=== PATIENT | female | born 1960 | race Caucasian/White ===

== ENCOUNTER 2023-03-09 10:21 | Outpatient (OUT) | payer OTHER, MEDICARE, SELFPAY ==
--- NOTE | 2023-03-09 | MM_ITS ---
Patient: FIDEL PLASCENCIA Exam Date: 03/09/2023 : 1960 Gender:F Ordering : DR Sid Castro . Admission #: [id number] Family : Order #: [id number] CLICK HERE TO VIEW EXAM RADIOLOGY REPORT PROCEDURE: MM TOMOSYNTHESIS SCREENING BI COMPARISON: MM TOMOSYNTHESIS SCREENING BI, 03/30/2017. INDICATIONS: Nishant Screening Mammogram Calculator Name NCI Breast Cancer Risk Assessment Tool 5 Year Breast Cancer Risk 1.40% Lifetime Breast Cancer Risk 5.80% Personal Breast Cancer No Personal Ovarian Cancer No Treatments None Family Cancers Aunt-paternal with breast cancer at age 60. LOCATION: [facility] BREAST COMPOSITION: Scattered areas fibroglandular density. FINDINGS: DIAGNOSTIC CATEGORY 1--NEGATIVE. NO CHANGE FROM COMPARISON ASSESSMENT. Scattered benign-appearing lymph nodes are present. RIGHT BREAST: No significant suspicious finding. LEFT BREAST: No significant suspicious finding. RECOMMENDATIONS: ROUTINE MAMMOGRAM AND CLINICAL EVALUATION IN 12 MONTHS. PLEASE NOTE: A NORMAL MAMMOGRAM DOES NOT EXCLUDE THE POSSIBILITY OF BREAST CANCER. A CLINICALLY SUSPICIOUS PALPABLE LUMP SHOULD BE BIOPSIED. Dictated by: Rory Abad MD on 03/09/2023 at 15:32 Approved by: Rory Abad MD on 03/09/2023 at 15:36
== END 2023-03-09 10:22 | disposition home or self-care (01) ==
LOC: MAMMO 10:21
PROVIDERS: PCP Family Medicine; Visit Provider Family Medicine
DX: Z12.31 Encounter for screening mammogram for malignant neoplasm of breast (principal); Z80.3 Family history of malignant neoplasm of breast
CPT/HCPCS: 77063; 77067

== ENCOUNTER 2024-02-15 08:16 | Emergency (ER) | payer OTHER, MEDICARE, SELFPAY ==
[2024-02-15 08:29] VITALS: BP 132/84; PULSE 62; TEMP 36.6; O2SAT 98; BMI 21.6
--- OUTSIDE RECORDS SUMMARY | 2024-02-15 08:39 | XMS_ITS | CCD ---
Author Organization [facility] Care Team Providers Care Inside Sales Administrator Name Role Phone KIRSTY, DR ARIES Robison Attending Unavailable KAURERER, DR ARIES Robison Consulting Unavailable PHILIPR, DR ARIES Robison Primary Care Unavailable KAURERER, DR ARIES Robison Admitting Unavailable SOPHIE, CHAPINCITO Attending Unavailable SOPHIE, CHAPINCITO Consulting Unavailable SOPHIE, CHAPINCITO Admitting Unavailable SOPHIE, CHAPINCITO Admitting Unavailable SOPHIE, CHAPINCITO Attending Unavailable SOPHIE, CHAPINCITO Consulting Unavailable SOPHIE, CHAPINCITO Primary Care Unavailable SOPHIE, CHAPINCITO Admitting Unavailable SOPHIE, CHAPINCITO Attending Unavailable SOPHIE, CHAPINCITO Primary Care Unavailable Problems Problem Classification Problem Date Documented Da te Episodic/Chronic Diseases of white blood cells (4 sources) Decreased white blood cell count, unspecified; Translations: [DECREASED WBC COUNT UNSPECIFIED] Onset: 06-02-2021 Chronic Thyroid disorders (1 source) Hypothyroidism, unspecified; Translations: [HYPOTHYROIDISM UNSPECIFIED] Onset: 12-29-2021 Chronic Results Test Name Value Interpretation Reference Range Facil ity CBC AUTO DIFFon 12-25-2021 BASO # 0.0 103/ul Normal 0.0-0.1 [facility] Comment on above: Performed By: #### C BC #### [facility] [address] [place] [address] Dr. Hazel Fernandez Basophils/100 WBC (Bld) 0.9 % Normal 0.2-2.0 [facility] Comment on above: Performed By: #### C BC #### [facility] [address] [address] [address] Hazel Fernandez EO # 0.1 103/ul Normal 0.0-0.7 [facility] Comment on above: Performed By: #### C BC #### [facility] [address] [address] [address] Hazel Fernandez Eosinophils/100 WBC (Bld) 1.8 % Normal 0.9-7.0 [facility] Comment on above: Performed By: #### C BC #### [facility] [address] [place] [address] Dr. Hazel Fernandez Erythrocyte distribution width (RBC) [Ratio] 12.1 % Normal 11.0-15.0 [facility] Comment on above: Performed By: #### C BC #### [facility] [address] [place] [address] Dr. Hazel Fernandez Hematocrit (Bld) [Volume fraction] 38.2 % Normal 36.0-48.0 [facility] Comment on above: Performed By: #### C BC #### [facility] [address] [place] [address] Dr. Hazel Fernandez Hemoglobin (Bld) [Mass/Vol] 12.8 g/dL Normal 12.0-16.0 [facility] Comment on above: Performed By: #### C BC #### [facility] [address] [place] [address] Dr. Hazel Fernandez IG # 0.01 10e3/ul Normal 0.00-0.03 [facility] Comment on above: Performed By: #### C BC #### [facility] [address] [place] [address] Dr. Hazel Fernandez IG % 0.3 % Normal 0.0-0.5 [facility] Comment on above: Performed By: #### C BC #### [facility] [address] [place] [address] Dr. Hazel Fernandez LYMPH # 1.0 103/ul Critically low 1.2-3.8 [facility] Comment on above: Performed By: #### C BC #### [facility] [address] [place] [address] Dr. Hazel Fernandez Lymphocytes/100 WBC (Bld) 28.7 % Normal 20.5-60.0 [facility] Comment on above: Performed By: #### C BC #### [facility] [address] [place] [address] Dr. Hazel Fernandez MANUAL DIFF REQ NO Normal [facility] Comment on above: Performed By: #### C BC #### [facility] [address] [address] [address] Hazel Fernandez MCH (RBC) [Entitic mass] 30.9 pg Normal 26.7-34.0 [facility] Comment on above: Performed By: #### C BC #### [facility] [address] [address] [address] Hazel Fernandez MCHC (RBC) [Mass/Vol] 33.5 g/dL Normal 29.9-35.2 [facility] Comment on above: Performed By: #### C BC #### [facility] [address] [place] [address] Dr. Hazel Fernandez MCV (RBC) [Entitic vol] 92.3 fL Normal 81.0-99.0 [facility] Comment on above: Performed By: #### C BC #### [facility] [address] [place] [address] Dr. Hazel Fernandez MONO # 0.3 103/ul Normal 0.3-0.8 [facility] Comment on above: Performed By: #### C BC #### [facility] [address] [place] [address] Dr. Hazel Fernandez Monocytes/100 WBC (Bld) 7.7 % Normal 1.7-12.0 [facility] Comment on above: Performed By: #### C BC #### [facility] [address] [place] [address] Dr. Hazel Fernandez NEUT # 2.1 103/ul Normal 1.4-6.5 [facility] Comment on above: Performed By: #### C BC #### [facility] [address] [place] [address] Dr. Hazel Fernandez Neutrophils/100 WBC (Bld) 60.6 % Normal 43.0-75.0 [facility] Comment on above: Performed By: #### C BC #### [facility] [address] [place] [address] Dr. Hazel Fernandez Platelet mean volume (Bld) [Entitic vol] 10.9 fL Normal 9.5-13.5 [facility] Comment on above: Performed By: #### C BC #### [facility] [address] [address] [address] Hazel Fernandez PLT 324 103/ul Normal 150-450 [facility] Comment on above: Performed By: #### C BC #### [facility] [address] [address] [address] Hazel Fernandez RBC 4.14 106/ul Critically low 4.20-5.40 [facility] Comment on above: Performed By: #### C BC #### [facility] [address] [address] [address] Hazel Fernandez WBC 3.4 103/ul Critically low 4.0-11.0 [facility] Comment on above: Performed By: #### C BC #### [facility] [address] [place] [address] Dr. Hazel Fernandez FREE T3on 12-25-2021 FREE T3 2.28 pg/mlL Normal 2.18-3.98 [facility] Comment on above: Performed By: #### L IPID, BMP, TSH, LIVER, FT3 #### [facility] [address] [address] [address] Hazel Fernandez FREE T4on 12-25-2021 Free T4 [Mass/Vol] 1.08 ng/dL Normal 0.76-1.46 [facility] Comment on above: Performed By: #### L IPID, CMP #### [facility] [address] [address] [address] Hazel Fernandez LIPID PROFILEon 12-25-2021 CHOL-HDL RATIO NORM SEE BELOW Normal [facility] Comment on above: Result Comment: 3.3 - 4.4 LOW RISK 4.4 - 7.1 AVERAGE RISK 7.1 - 11.0 MODERATE RISK >11.0 HIGH RISK Performed By: #### L IPID, BMP, TSH, LIVER, FT3 #### [facility] [address] [place] [address] Dr. Hazel Fernandez Cholesterol [Mass/Vol] 219 mg/dL Critically high <=200 [facility] Comment on above: Performed By: #### L IPID, BMP, TSH, LIVER, FT3 #### [facility] [address] [address] [address] Hazel Fernandez Cholesterol in HDL [Mass/Vol] 91 mg/dL Critically high 40-60 [facility] Comment on above: Performed By: #### L IPID, BMP, TSH, LIVER, FT3 #### [facility] [address] [address] [address] Hazel Fernandez Cholesterol in LDL [Mass/Vol] 109.4 mg/dL Normal [facility] Comment on above: Performed By: #### L IPID, BMP, TSH, LIVER, FT3 #### [facility] [address] [address] [address] Hazel Fernandez Cholesterol.total/Cho lesterol in HDL [Mass ratio] 2.4 {ratio} Normal [facility] Comment on above: Performed By: #### L IPID, BMP, TSH, LIVER, FT3 #### [facility] [address] [address] [address] Hazel Fernandez HDL NORMAL > or = 60 mg/dl - LOW CARDIOVASCULAR RISK <40 mg/dl - HIGH CARDIOVASCULAR RISK Normal [facility] Comment on above: Performed By: #### L IPID, BMP, TSH, LIVER, FT3 #### [facility] [address] [address] [address] Hazel Fernandez LDL CALC NORMAL SEE BELOW Normal [facility] Comment on above: Result Comment: <100 mg/dl OPTIMAL 100 - 129 mg/dl NEAR OR ABOVE OPTIMAL 130 - 159 mg/dl BORDERLINE HIGH 160 - 189 mg/dl HIGH >190 mg/dl VERY HIGH Performed By: #### L IPID, BMP, TSH, LIVER, FT3 #### [facility] [address] [address] [address] Hazel Fernandez Triglyceride [Mass/Vol] 93 mg/dL Normal <=150 [facility] Comment on above: Performed By: #### L IPID, BMP, TSH, LIVER, FT3 #### [facility] [address] [address] [address] Hazel Fernandez VLDL CALC 18.6 mg/dL Normal [facility] Comment on above: Performed By: #### L IPID, BMP, TSH, LIVER, FT3 #### [facility] [address] [address] [address] Hazel Fernandez LIVER PROFILEon 12-25-2021 Albumin [Mass/Vol] 4.0 g/dL Normal 3.4-5.0 [facility] Comment on above: Performed By: #### L IPID, BMP, TSH, LIVER, FT3 #### [facility] [address] [address] [address] Hazel Fernandez Albumin/Globulin [Mass ratio] 1.2 {ratio} Normal [facility] Comment on above: Performed By: #### L IPID, BMP, TSH, LIVER, FT3 #### [facility] [address] [place] [address] Dr. Hazel Fernandez ALP [Catalytic activity/Vol] 100 U/L Normal 46-116 [facility] Comment on above: Performed By: #### L IPID, BMP, TSH, LIVER, FT3 #### [facility] [address] [address] [address] Hazel Fernandez ALT [Catalytic activity/Vol] 16 U/L Normal 14-59 [facility] Comment on above: Performed By: #### L IPID, BMP, TSH, LIVER, FT3 #### [facility] [address] [address] [address] Hazel Fernandez AST [Catalytic activity/Vol] 16 U/L Normal 15-37 [facility] Comment on above: Performed By: #### L IPID, BMP, TSH, LIVER, FT3 #### [facility] [address] [address] [address] Hazel Fernandez BILI, CONJUGATED 0.1 mg/dL Normal 0.0-0.2 [facility] Comment on above: Performed By: #### L IPID, BMP, TSH, LIVER, FT3 #### [facility] [address] [address] [address] Hazel Fernandez Bilirubin [Mass/Vol] 0.5 mg/dL Normal 0.2-1.0 [facility] Comment on above: Performed By: #### L IPID, BMP, TSH, LIVER, FT3 #### [facility] [address] [place] [address] Dr. Hazel Fernandez Globulin (S) [Mass/Vol] 3.3 g/dL Normal [facility] Comment on above: Performed By: #### L IPID, BMP, TSH, LIVER, FT3 #### [facility] [address] [place] [address] Dr. Hazel Fernandez Protein [Mass/Vol] 7.3 g/dL Normal 6.4-8.2 [facility] Comment on above: Performed By: #### L IPID, BMP, TSH, LIVER, FT3 #### [facility] [address] [place] [address] Dr. Hazel Fernandez PROF CHEM 8 (BAS METB)on Anion gap [Moles/Vol] 10.4 mmol/L Normal [facility] Comment on above: Performed By: #### L IPID, BMP, TSH, LIVER, FT3 #### [facility] [address] [place] [address] Dr. Hazel Fernandez Calcium [Mass/Vol] 9.3 mg/dL Normal 8.5-10.1 [facility] Comment on above: Performed By: #### L IPID, BMP, TSH, LIVER, FT3 #### [facility] [address] [place] [address] Dr. Hazel Fernandez Chloride [Moles/Vol] 101 mmol/L Normal 98-107 [facility] Comment on above: Performed By: #### L IPID, BMP, TSH, LIVER, FT3 #### [facility] [address] [place] [address] Dr. Hazel Fernandez CO2 [Moles/Vol] 30.3 mmol/L Normal 21.0-32.0 [facility] Comment on above: Performed By: #### L IPID, BMP, TSH, LIVER, FT3 #### [facility] [address] [place] [address] Dr. Hazel Fernandez Creatinine [Mass/Vol] 0.75 mg/dL Normal 0.55-1.02 [facility] Comment on above: Performed By: #### L IPID, BMP, TSH, LIVER, FT3 #### [facility] [address] [address] [address] Hazel Fernandez EGFR-AF MEXICAN >60 Normal >=60 [facility] Comment on above: Performed By: #### L IPID, BMP, TSH, LIVER, FT3 #### [facility] [address] [address] [address] Hazel Fernandez EGFR-NON AF MEXICAN >60 Normal >=60 [facility] Comment on above: Performed By: #### L IPID, BMP, TSH, LIVER, FT3 #### [facility] [address] [address] [address] Hazel Fernandez Glucose [Mass/Vol] 92 mg/dL Normal 74-106 [facility] Comment on above: Performed By: #### L IPID, BMP, TSH, LIVER, FT3 #### [facility] [address] [address] [address] Hazel Fernandez Potassium [Moles/Vol] 3.7 mmol/L Normal 3.5-5.1 [facility] Comment on above: Performed By: #### L IPID, BMP, TSH, LIVER, FT3 #### [facility] [address] [address] [address] Hazel Fernandez Sodium [Moles/Vol] 138 mmol/L Normal 136-145 [facility] Comment on above: Performed By: #### L IPID, BMP, TSH, LIVER, FT3 #### [facility] [address] [address] [address] Hazel Fernandez Urea nitrogen [Mass/Vol] 16.0 mg/dL Normal 7.0-18.0 [facility] Comment on above: Performed By: #### L IPID, BMP, TSH, LIVER, FT3 #### [facility] [address] [address] [address] Hazel Fernandez Urea nitrogen/Creatinine [Mass ratio] 21.3 mg/mg Normal [facility] Comment on above: Performed By: #### L IPID, BMP, TSH, LIVER, FT3 #### [facility] [address] [place] [address] Dr. Hazel Fernandez TSHon 12-25-2021 TSH 3.662 uIU/mL Normal 0.358-3.740 [facility] Comment on above: Performed By: #### L IPID, BMP, TSH, LIVER, FT3 #### [facility] [address] [place] [address] Dr. Hazel Fernandez CBC AUTO DIFFon 06-02-2021 BASO # 0.0 103/ul Normal 0.0-0.1 [facility] Comment on above: Performed By: #### L IPID, CMP #### [facility] [address] [place] [address] Dr. Hazel Fernandez Basophils/100 WBC (Bld) 0.8 % Normal 0.2-2.0 [facility] Comment on above: Performed By: #### L IPID, CMP #### [facility] [address] [place] [address] Dr. Hazel Fernandez EO # 0.1 103/ul Normal 0.0-0.7 [facility] Comment on above: Performed By: #### L IPID, CMP #### [facility] [address] [place] [address] Dr. Hazel Fernandez Eosinophils/100 WBC (Bld) 1.6 % Normal 0.9-7.0 [facility] Comment on above: Performed By: #### L IPID, CMP #### [facility] [address] [place] [address] Dr. Hazel Fernandez Erythrocyte distribution width (RBC) [Ratio] 11.9 % Normal 11.0-15.0 [facility] Comment on above: Performed By: #### L IPID, CMP #### [facility] [address] [place] [address] Dr. Hazel Fernandez Hematocrit (Bld) [Volume fraction] 39.6 % Normal 36.0-48.0 [facility] Comment on above: Performed By: #### L IPID, CMP #### [facility] [address] [address] [address] Hazel Fernandez Hemoglobin (Bld) [Mass/Vol] 13.1 g/dL Normal 12.0-16.0 [facility] Comment on above: Performed By: #### L IPID, CMP #### [facility] [address] [address] [address] Hazel Fernandez IG # 0.01 10e3/ul Normal 0.00-0.03 [facility] Comment on above: Performed By: #### L IPID, CMP #### [facility] [address] [place] [address] Dr. Hazel Fernandez IG % 0.3 % Normal 0.0-0.5 [facility] Comment on above: Performed By: #### L IPID, CMP #### [facility] [address] [place] [address] Dr. Hazle Fernandez LYMPH # 0.8 103/ul Critically low 1.2-3.8 [facility] Comment on above: Performed By: #### L IPID, CMP #### [facility] [address] [place] [address] Dr. Hazel Fernandez Lymphocytes/100 WBC (Bld) 21.7 % Normal 20.5-60.0 [facility] Comment on above: Performed By: #### L IPID, CMP #### [facility] [address] [place] [address] Dr. Hazel Fernandez MANUAL DIFF REQ NO Normal [facility] Comment on above: Performed By: #### L IPID, CMP #### [facility] [address] [address] [address] Hazel Fernandez MCH (RBC) [Entitic mass] 30.3 pg Normal 26.7-34.0 [facility] Comment on above: Performed By: #### L IPID, CMP #### [facility] [address] [place] [address] Dr. Hazel Fernandez MCHC (RBC) [Mass/Vol] 33.1 g/dL Normal 29.9-35.2 [facility] Comment on above: Performed By: #### L IPID, CMP #### [facility] [address] [place] [address] Dr. Hazel Fernandez MCV (RBC) [Entitic vol] 91.7 fL Normal 81.0-99.0 [facility] Comment on above: Performed By: #### L IPID, CMP #### [facility] [address] [place] [address] Dr. Hazel Fernandez MONO # 0.3 103/ul Normal 0.3-0.8 [facility] Comment on above: Performed By: #### L IPID, CMP #### [facility] [address] [place] [address] Dr. Hazel Fernandez Monocytes/100 WBC (Bld) 6.6 % Normal 1.7-12.0 [facility] Comment on above: Performed By: #### L IPID, CMP #### [facility] [address] [place] [address] Dr. Hazel Fernandez NEUT # 2.6 103/ul Normal 1.4-6.5 [facility] Comment on above: Performed By: #### L IPID, CMP #### [facility] [address] [place] [address] Dr. Hazel Fernandez Neutrophils/100 WBC (Bld) 69.0 % Normal 43.0-75.0 [facility] Comment on above: Performed By: #### L IPID, CMP #### [facility] [address] [place] [address] Dr. Hazel Fernandez Platelet mean volume (Bld) [Entitic vol] 10.5 fL Normal 9.5-13.5 [facility] Comment on above: Performed By: #### L IPID, CMP #### [facility] [address] [place] [address] Dr. Hazel Fernandez PLT 268 103/ul Normal 150-450 [facility] Comment on above: Performed By: #### L IPID, CMP #### [facility] [address] [place] [address] Dr. Hazel Fernandez RBC 4.32 106/ul Normal 4.20-5.40 [facility] Comment on above: Performed By: #### L IPID, CMP #### [facility] [address] [place] [address] Dr. Hazel Fernandez WBC 3.8 103/ul Critically low 4.0-11.0 [facility] Comment on above: Performed By: #### L IPID, CMP #### [facility] [address] [place] [address] Dr. Hazel Fernandez INSULINon 05-01-2021 Insulin 4.9 uIU/mL Normal 2.6-24.9 [facility] Comment on above: Performed By: #### I NSULIN #### [facility] [address] [place] [address] Dr. Hazel Fernandez CBC AUTO DIFFon 04-30-2021 BASO # 0.1 103/ul Normal 0.0-0.1 [facility] Comment on above: Performed By: #### L IPID, CMP #### [facility] [address] [place] [address] Dr. Hazel Fernandez Basophils/100 WBC (Bld) 1.4 % Normal 0.2-2.0 [facility] Comment on above: Performed By: #### L IPID, CMP #### [facility] [address] [place] [address] Dr. Hazel Fernandez EO # 0.0 103/ul Normal 0.0-0.7 [facility] Comment on above: Performed By: #### L IPID, CMP #### [facility] [address] [place] [address] Dr. Hazel eFrnandez Eosinophils/100 WBC (Bld) 1.1 % Normal 0.9-7.0 [facility] Comment on above: Performed By: #### L IPID, CMP #### [facility] [address] [place] [address] Dr. Hazel Fernandez Erythrocyte distribution width (RBC) [Ratio] 11.9 % Normal 11.0-15.0 [facility] Comment on above: Performed By: #### L IPID, CMP #### [facility] [address] [address] [address] Hazel Fernandez Hematocrit (Bld) [Volume fraction] 38.5 % Normal 36.0-48.0 [facility] Comment on above: Performed By: #### L IPID, CMP #### [facility] [address] [address] [address] Hazel Fernandez Hemoglobin (Bld) [Mass/Vol] 12.5 g/dL Normal 12.0-16.0 [facility] Comment on above: Performed By: #### L IPID, CMP #### [facility] [address] [place] [address] Dr. Hazel Fernandez IG # 0.01 10e3/ul Normal 0.00-0.03 [facility] Comment on above: Performed By: #### L IPID, CMP #### [facility] [address] [place] [address] Dr. Hazel Fernandez IG % 0.3 % Normal 0.0-0.5 [facility] Comment on above: Performed By: #### L IPID, CMP #### [facility] [address] [address] [address] Hazel Fernandez LYMPH # 0.8 103/ul Critically low 1.2-3.8 [facility] Comment on above: Performed By: #### L IPID, CMP #### [facility] [address] [address] [address] Hazel Fernandez Lymphocytes/100 WBC (Bld) 24.0 % Normal 20.5-60.0 [facility] Comment on above: Performed By: #### L IPID, CMP #### [facility] [address] [place] [address] Dr. Hazel Fernandez MANUAL DIFF REQ NO Normal [facility] Comment on above: Performed By: #### L IPID, CMP #### [facility] [address] [place] [address] Dr. Hazel Fernandez MCH (RBC) [Entitic mass] 30.5 pg Normal 26.7-34.0 [facility] Comment on above: Performed By: #### L IPID, CMP #### [facility] [address] [place] [address] Dr. Hazel Fernandez MCHC (RBC) [Mass/Vol] 32.5 g/dL Normal 29.9-35.2 [facility] Comment on above: Performed By: #### L IPID, CMP #### [facility] [address] [place] [address] Dr. Hazel Fernandez MCV (RBC) [Entitic vol] 93.9 fL Normal 81.0-99.0 [facility] Comment on above: Performed By: #### L IPID, CMP #### [facility] [address] [place] [address] Dr. Hazel Fernandez MONO # 0.3 103/ul Normal 0.3-0.8 [facility] Comment on above: Performed By: #### L IPID, CMP #### [facility] [address] [place] [address] Dr. Hazel Fernandez Monocytes/100 WBC (Bld) 7.4 % Normal 1.7-12.0 [facility] Comment on above: Performed By: #### L IPID, CMP #### [facility] [address] [place] [address] Dr. Hazel Fernandez NEUT # 2.3 103/ul Normal 1.4-6.5 [facility] Comment on above: Performed By: #### L IPID, CMP #### [facility] [address] [place] [address] Dr. Hazel Fernandez Neutrophils/100 WBC (Bld) 65.8 % Normal 43.0-75.0 [facility] Comment on above: Performed By: #### L IPID, CMP #### [facility] [address] [place] [address] Dr. Hazel Fernandez Platelet mean volume (Bld) [Entitic vol] 10.3 fL Normal 9.5-13.5 [facility] Comment on above: Performed By: #### L IPID, CMP #### [facility] [address] [place] [address] Dr. Hazel Fernandez PLT 344 103/ul Normal 150-450 [facility] Comment on above: Performed By: #### L IPID, CMP #### [facility] [address] [address] [address] Hazel Fernandez RBC 4.10 106/ul Critically low 4.20-5.40 [facility] Comment on above: Performed By: #### L IPID, CMP #### [facility] [address] [address] [address] Hazel Fernandez WBC 3.5 103/ul Critically low 4.0-11.0 [facility] Comment on above: Performed By: #### L IPID, CMP #### [facility] [address] [place] [address] Dr. Hazel Feranndez GLYCOHEMOGLOBIN A1Con 2020 ADA RECOMMENDATION ADA THERAPEUTIC TARGET 6.0 - 7.0 ACTION SUGGESTED > 7.0 Normal [facility] Comment on above: Performed By: #### A 1C #### [facility] [address] [place] [address] Dr. Hazel Fernandez Glucose [Mass/Vol] 114 mg/dL Normal [facility] Comment on above: Performed By: #### A 1C #### [facility] [address] [place] [address] Dr. Hazel Fernandez HbA1c (Bld) [Mass fraction] 5.6 % Normal <=6.0 [facility] Comment on above: Performed By: #### A 1C #### [facility] [address] [place] [address] Dr. Hazel Fernandez IRONon 04-30-2021 Iron [Mass/Vol] 69.0 ug/dL Normal 37.0-170.0 [facility] Comment on above: Performed By: #### L IPID, CMP #### [facility] [address] [place] [address] Dr. Hazel Fernandez LIPID PROFILEon 04-30-2021 CHOL-HDL RATIO NORM SEE BELOW Normal [facility] Comment on above: Result Comment: 3.3 - 4.4 LOW RISK 4.4 - 7.1 AVERAGE RISK 7.1 - 11.0 MODERATE RISK >11.0 HIGH RISK Performed By: #### L IPID, CMP #### [facility] [address] [address] [address] Hazel Fernandez Cholesterol [Mass/Vol] 214 mg/dL Critically high <=200 [facility] Comment on above: Performed By: #### L IPID, CMP #### [facility] [address] [address] [address] Hazel Fernandez Cholesterol in HDL [Mass/Vol] 90 mg/dL Normal [facility] Comment on above: Performed By: #### L IPID, CMP #### [facility] [address] [address] [address] Hazel Fernandez Cholesterol in LDL [Mass/Vol] 106.4 mg/dL Normal [facility] Comment on above: Performed By: #### L IPID, CMP #### [facility] [address] [place] [address] Dr. Hazel Fernandez Cholesterol.total/Cho lesterol in HDL [Mass ratio] 2.4 {ratio} Normal [facility] Comment on above: Performed By: #### L IPID, CMP #### [facility] [address] [address] [address] Hazel Fernandez HDL NORMAL > or = 60 mg/dl - LOW CARDIOVASCULAR RISK <40 mg/dl - HIGH CARDIOVASCULAR RISK Normal [facility] Comment on above: Performed By: #### L IPID, CMP #### [facility] [address] [address] [address] Hazel Fernandez LDL CALC NORMAL SEE BELOW Normal [facility] Comment on above: Result Comment: <100 mg/dl OPTIMAL 100 - 129 mg/dl NEAR OR ABOVE OPTIMAL 130 - 159 mg/dl BORDERLINE HIGH 160 - 189 mg/dl HIGH >190 mg/dl VERY HIGH Performed By: #### L IPID, CMP #### [facility] [address] [address] [address] Hazel Fernandez Triglyceride [Mass/Vol] 88 mg/dL Normal <=150 [facility] Comment on above: Performed By: #### L IPID, CMP #### [facility] [address] [place] [address] Dr. Hazel Fernandez VLDL CALC 17.6 mg/dL Normal [facility] Comment on above: Performed By: #### L IPID, CMP #### [facility] [address] [place] [address] Dr. Hazel Fernandez PROF 14(COMP METB)on 021 Albumin [Mass/Vol] 3.8 g/dL Normal 3.5-5.0 [facility] Comment on above: Performed By: #### L IPID, CMP #### [facility] [address] [address] [address] Hazel Fernandez Albumin/Globulin [Mass ratio] 1.1 {ratio} Normal [facility] Comment on above: Performed By: #### L IPID, CMP #### [facility] [address] [place] [address] Dr. Hazel Fernandez ALP [Catalytic activity/Vol] 109 U/L Normal 38-126 [facility] Comment on above: Performed By: #### L IPID, CMP #### [facility] [address] [place] [address] Dr. Hazel Fernandez ALT [Catalytic activity/Vol] 20 U/L Normal 9-52 [facility] Comment on above: Performed By: #### L IPID, CMP #### [facility] [address] [place] [address] Dr. Hazel Fernandez Anion gap [Moles/Vol] 9.2 mmol/L Normal [facility] Comment on above: Performed By: #### L IPID, CMP #### [facility] [address] [place] [address] Dr. Hazel Fernandez AST [Catalytic activity/Vol] 14 U/L Normal 14-36 [facility] Comment on above: Performed By: #### L IPID, CMP #### [facility] [address] [place] [address] Dr. Hazel Fernandez Bilirubin [Mass/Vol] 0.5 mg/dL Normal 0.2-1.3 [facility] Comment on above: Performed By: #### L IPID, CMP #### [facility] [address] [address] [address] Hazel Fernandez Calcium [Mass/Vol] 9.3 mg/dL Normal 8.4-10.2 [facility] Comment on above: Performed By: #### L IPID, CMP #### [facility] [address] [address] [address] Hazel Fernandez Chloride [Moles/Vol] 103 mmol/L Normal 98-107 [facility] Comment on above: Performed By: #### L IPID, CMP #### [facility] [address] [address] [address] Hazel Fernandez CO2 [Moles/Vol] 31.8 mmol/L Critically high 22.0-30.0 [facility] Comment on above: Performed By: #### L IPID, CMP #### [facility] [address] [place] [address] Dr. Hazel Fernandez Creatinine [Mass/Vol] 0.88 mg/dL Normal 0.52-1.04 [facility] Comment on above: Performed By: #### L IPID, CMP #### [facility] [address] [place] [address] Dr. Hazel Fernandez EGFR-AF MEXICAN >60 Normal >=60 [facility] Comment on above: Performed By: #### L IPID, CMP #### [facility] [address] [place] [address] Dr. Hazel Fernandez EGFR-NON AF MEXICAN >60 Normal >=60 [facility] Comment on above: Performed By: #### L IPID, CMP #### [facility] [address] [address] [address] Hazel Fernandez Globulin (S) [Mass/Vol] 3.4 g/dL Normal [facility] Comment on above: Performed By: #### L IPID, CMP #### [facility] [address] [address] [address] Hazel Fernandez Glucose [Mass/Vol] 92 mg/dL Normal 74-106 [facility] Comment on above: Performed By: #### L IPID, CMP #### [facility] [address] [address] [address] Hazel Fernandez Potassium [Moles/Vol] 4.0 mmol/L Normal 3.4-5.0 [facility] Comment on above: Performed By: #### L IPID, CMP #### [facility] [address] [address] [address] Hazel Fernandez Protein [Mass/Vol] 7.2 g/dL Normal 6.1-8.2 [facility] Comment on above: Performed By: #### L IPID, CMP #### [facility] [address] [address] [address] Hazel Fernandez Sodium [Moles/Vol] 140 mmol/L Normal 137-145 [facility] Comment on above: Performed By: #### L IPID, CMP #### [facility] [address] [place] [address] Dr. Hazel Fernandez Urea nitrogen [Mass/Vol] 15.0 mg/dL Normal 7.0-17.0 [facility] Comment on above: Performed By: #### L IPID, CMP #### [facility] [address] [address] [address] Hazel Fernandez Urea nitrogen/Creatinine [Mass ratio] 17.0 mg/mg Normal [facility] Comment on above: Performed By: #### L IPID, CMP #### [facility] [address] [address] [address] Hazel Fernandez Encounters Encounter Date Encounter Type Care Provider Facility Start: 12-29-2021 Encounter for genera l adult medical examination without abnormal findings DR ARIES LOFTON [facility] Start: 12-25-2021 End: 12-26-[address] ARIES LOFTON Facility:[facility] Start: 12-25-2021 End: 12-26-2021 Encounter for general adult medical examination without abnormal findings DR ARIES LOFTON Facility:[facility] Start: 10-29-2021 ambulatory CHAPINCITO BARRIOS Facility: [facility] Start: 06-02-2021 End: 06-03-2021 ambulatory CHAPINCITO BARRIOS Facility:[facility] Start: 04-30-2021 End: 05-01-2021 ambulatory CHAPINCITO BARRIOS Facility:[facility] Payers Date Payer Category Payer Medicare [id number] 1961 Self-pay 1961 Unknown [id number] 1960 Unknown [id number] [id number] 1960 Unknown [id number] [id number] 1960 Unknown [id number] [id number] [id number] 1960 Unknown [id number] 2.16.84 [id number] Summary Purpose Family History No Family History Records Found Advance Directives No Advanced Directives Records Found Additional Source Comments INFORMATION SOURCE (unrecogn ized section and content) DATE CREATED AUTHOR 12/31/[address] [facility] FOR RECORDS PERTAINING TO PATIENTS WHO ARE OR HAVE BEEN ENROLLED IN A CHEMICAL DEPENDENCY/SUBSTANCEABUSE PROGRAM, SOME INFORMATION MAY BE OMITTED. This clinical summary was aggregated from multiple sources. Caution should be exercised in using it in the provision of clinical care. This summary normalizes information from multiple sources, and as a consequence, information in this document may materially change the coding, format and clinical context of patient data. In addition, data may be omitted in some cases. CLINICAL DECISIONS SHOULD BE BASED ON THE PRIMARY CLINICAL RECORDS. [facility] [facility]. provides no warranty or guarantee of the accuracy or completeness of information in this document.
--- NOTE | 2024-02-15 09:02 | CT_ITS ---
[address] [address] Patient Name: FIDEL PLASCENCIA MRN: [id number] date: 1960 Sex: F Assigned Patient Location: ER Current Patient Location: Accession/Order Number: [id number] Exam Date: 02/15/2024 09:38 Report Date: 02/15/2024 10:14 At the request of: RORY JACOBS Procedure: CT abdomen pelvis w con EXAMINATION: CT abdomen pelvis w con HISTORY: RUQ pain ; recurrent abdominal pain after eating ; diaphoresis, diarrhea, vomiting COMPARISON: No relevant comparison available. TECHNIQUE: Axial, Coronal, and Sagittal images were obtained without and/or with IV contrast as indicated by examination type. Dose reduction techniques were achieved by using automated exposure control and/or adjustment of mA and/or kV according to patient size and/or use of iterative reconstruction technique. FINDINGS: LUNG BASES: No visible pulmonary or pleural disease. LIVER: 2 small cysts versus hemangiomas within right hepatic lobe, largest is 1.4 cm. No enlargement, atrophy, suspicious density, or significant focal lesion. BILIARY: No dilatation or calcification. PANCREAS: No lesion, fluid collection, or abnormal duct dilatation. SPLEEN: No enlargement or focal lesion. ADRENALS: No mass or enlargement. 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 A few tiny cortical cysts bilaterally No mass, obstruction, or calcification. BOWEL/MESENTERY: No visible mass, obstruction, or bowel wall thickening. AORTA/VASCULAR: No aneurysm or dissection. RETROPERITONEUM: No mass or adenopathy. LYMPH NODES: No adenopathy. URINARY BLADDER: No visible focal wall thickening, lesion, or calculus. PELVIC ORGANS: Trace amount of free fluid within the right adnexa/pelvic cul-de-sac. No visible mass. Pelvic organs appropriate for patient age. ABDOMINAL WALL: No mass or hernia. BONES: No bony lesion or fracture. OTHER: Negative. CT/CT abdomen pelvis w con IMPRESSION: 1. No acute or suspicious findings to account for patient's symptoms. 2. Trace amount of free fluid within pelvic cul-de-sac/right adnexa of uncertain etiology. No appreciable enlarged ovaries or ovarian cysts. Consider nonemergent follow-up pelvic ultrasound if clinically indicated. Electronically authenticated by: ANKIT JOHNSON Date: 02/15/2024 10:14
--- NOTE | 2024-02-15 09:11 | ED.ABDPAIN1 ---
HPI - Abdominal Pain General Chief Complaint: Abdominal Pain Stated Complaint: ABDOMINAL PAIN Time Seen by Provider: 02/15/24 08:41 Source: patient and family Mode of arrival: walk-in Limitations: no limitations History of Present Illness HPI narrative: 63-year-old female to the emergency department chief complaint of recurrent episodes of right upper quadrant pain. Patient reports that she has had several episodes now the first of which was 2 months ago. Seems to occur after eating. Seems to occur at night. Lasts about 40 minutes. Is best characterized as a cramping severe epigastric/right upper quadrant pain. It makes her diaphoretic and nauseous. Vomiting seems to help. She denies any fever, sweats, chills. She did have an episode last night. Related Data Home Medications ?Medication ?Instructions ?Recorded ?Confirmed levothyroxine 50 mcg tablet 50 mcg PO DAILY 02/15/24 02/15/24 Previous Rx's ?Medication ?Instructions ?Recorded dicyclomine 20 mg tablet 20 mg PO QID PRN abdominal pain 02/15/24 #14 tabs ondansetron 4 mg disintegrating 4 mg PO Q8H PRN nausea and 02/15/24 tablet vomiting 4 days #16 tabs Allergies Allergy/AdvReac Type Severity Reaction Status Date / Time No Known Drug Allergies Allergy Verified 02/15/24 08:37 Review of Systems ROS Status of ROS 10 or more systems reviewed and unremarkable except as noted in history and below PFSH PFSH Social History Little interest or pleasure in doing things: not at all Feeling down, depressed, or hopeless: not at all Exam Narrative Exam Narrative: VITALS: I have reviewed the triage vital signs. GENERAL: Well developed, well appearing adult in no acute distress. NEURO: Alert and oriented. Moves all extremities. Face is symmetric and expressive. EYES: PERRL. No scleral icterus or conjunctival injection. No discharge. HENT: Normocephalic, atraumatic. Hearing is grossly intact. Nares grossly patent and without discharge. Mucous membranes moist. NECK: No JVD. Patient moves neck without restriction. CARDIO: Rhythm regular. Normal rate. No murmur, rub, or gallop. Pulses equal bilaterally in the upper and lower extremity. No lower extremity edema. PULM: Lungs clear to auscultation in all de jesus. No wheezes, rales, or rhonchi. No conversational dyspnea. No splinting, stridor, or accessory muscle use. GI/: Abdomen is soft and non-tender. Normoactive bowel sounds. EXTREMITIES: Symmetric muscle bulk. No joint swelling. No clubbing, cyanosis, or deformity. SKIN: Warm and dry. Normal turgor. No rash or lesions appreciated. PSYCH: Mood, affect, and interaction is appropriate to the setting. Constitutional Vital Signs, click to edit/add: Last Vital Signs Temp 97.8 F 02/15/24 08:29 Pulse 62 02/15/24 08:29 Resp 18 02/15/24 08:29 BP 132/84 02/15/24 08:29 Pulse Ox 98 02/15/24 08:29 O2 Del Method Room Air 02/15/24 08:29 Course Vital Signs Vital signs: Vital Signs Temperature 97.8 F 02/15/24 08:29 Pulse Rate 62 02/15/24 08:29 Respiratory Rate 18 02/15/24 08:29 Blood Pressure 132/84 02/15/24 08:29 Pulse Oximetry 98 02/15/24 08:29 Oxygen Delivery Method Room Air 02/15/24 08:29 Temperature 97.8 F 02/15/24 08:29 Pulse Rate 62 02/15/24 08:29 Respiratory Rate 18 02/15/24 08:29 Blood Pressure 132/84 02/15/24 08:29 Pulse Oximetry 98 02/15/24 08:29 Oxygen Delivery Method Room Air 02/15/24 08:29 MDM - Abdominal Pain MDM Narrative Medical decision making narrative: Well-appearing 63-year-old female to the emergency department chief complaint of intermittent upper abdominal pain. Her abdomen is benign. Vital stable, the patient is afebrile. Will obtain basic labs and CT scan. Patient agrees with this plan. CBC and chemistry are unremarkable. She has a trace elevation of lipase. CT scan without acute findings. Troponin negative. Patient remained asymptomatic. Story is concerning for biliary colic. I did call and discussed with Dr. Perdomo the on-call general surgeon. He agrees with plan for outpatient care, recommends initial follow-up with GI given the lipase level. He can then see the patient in office to discuss cholecystectomy if her symptoms continue. Discussed with the patient. She is given the information for both the [facility]'s group at her request. Sarika. Return precautions were discussed. All questions were answered. The patient was discharged home. Medical Records Attestation: I reviewed the patient's medical records. Lab Data Attestation: I reviewed the patient's lab results. Labs: Lab Results 02/15/24 Range/Units 08:42 WBC 5.0 (4.0-11.0) 10^3/uL RBC 4.28 (4.20-5.40) 10^6/uL Hgb 13.4 (12.0-16.0) g/dL Hct 39.3 (36.0-48.0) % MCV 91.8 (81.0-99.0) fL MCH 31.3 (26.7-34.0) pg MCHC 34.1 (29.9-35.2) g/dL RDW 11.9 (11.0-15.0) % Plt Count 320 (150-450) 10^3/uL MPV 10.9 (9.5-13.5) fL Neut % (Auto) 45.9 (43.0-75.0) % Lymph % (Auto) 19.5 L (20.5-60.0) % Robeson % (Auto) 5.2 (1.7-12.0) % Eos % (Auto) 28.8 H (0.9-7.0) % Baso % (Auto) 0.4 (0.2-2.0) % Neut # (Auto) 2.3 (1.4-6.5) 10^3/uL Lymph # (Auto) 1.0 L (1.2-3.8) 10^3/uL Robeson # (Auto) 0.3 (0.3-0.8) 10^3/uL Eos # (Auto) 1.5 H (0.0-0.7) 10^3/uL Baso # (Auto) 0.0 (0.0-0.1) 10^3/uL Abs Immat Gran (auto) 0.01 (0.00-0.03) 10^3/uL Imm/Tot Granulo (auto) 0.2 (0.0-0.5) % Sodium 137 (136-145) mmol/L Potassium 3.5 (3.5-5.1) mmol/L Chloride 103 (98-107) mmol/L Carbon Dioxide 28.2 (21.0-32.0) mmol/L Anion Gap 9.3 BUN 12.0 (7.0-18.0) mg/dL Creatinine 0.96 (0.55-1.02) mg/dL Est GFR ( Amer) >60 (>=60 mL/min/1.73m^2) Est GFR (Non-Af Amer) 58 L (>=60 mL/min/1.73m^2) BUN/Creatinine Ratio 12.5 Glucose 97 (74-106) mg/dL Calcium 9.2 (8.5-10.1) mg/dL Total Bilirubin 0.7 (0.2-1.0) mg/dL AST 19 (15-37) U/L ALT 19 (14-59) U/L Alkaline Phosphatase 100 (46-116) U/L Troponin I High Sens 5.4 (4.0-51.3) pg/mL Total Protein 6.5 (6.4-8.2) g/dL Albumin 3.4 (3.4-5.0) g/dL Globulin 3.1 g/dL Albumin/Globulin Ratio 1.1 Lipase 140.0 H (16.0-77.0) U/L Imaging Data CT scan - abdomen: Radiologist's impression: ITS Impressions Abdomen/Pelvis CT 02/15/24 09:02 IMPRESSION: 1. No acute or suspicious findings to account for patient's symptoms. 2. Trace amount of free fluid within pelvic cul-de-sac/right adnexa of uncertain etiology. No appreciable enlarged ovaries or ovarian cysts. Consider nonemergent follow-up pelvic ultrasound if clinically indicated. Electronically authenticated by: ANKIT JOHNSON Date: 02/15/2024 10:14 Discharge Plan Discharge Chief Complaint: Abdominal Pain Clinical Impression: Biliary colic, Elevated lipase Patient Disposition: Home, Self-Care Time of Disposition Decision: 11:31 Condition: Good Mode of Transportation: Private Vehicle Prescriptions / Home Meds: New ondansetron 4 mg tablet,disintegrating 4 mg PO Q8H PRN (Reason: nausea and vomiting) 4 Days Qty: 16 0RF dicyclomine 20 mg tablet 20 mg PO QID PRN (Reason: abdominal pain) Qty: 14 0RF No Action levothyroxine 50 mcg tablet 50 mcg PO DAILY Print Language: Kazakh Instructions: Biliary Colic (ED) Additional Instructions: [facility]: Call for appt [phone] [facility] [place]: [phone] Referrals: Sid Castro MD [Physician] - 1 week Mina Perdomo MD [Physician] - 1 week (Call to establish follow-up to discuss your abdominal pain)
[2024-02-15 09:13] LABS: Basophils Percent Auto 0.4 % (0.2-2.0); Eosinophils Absolute Auto 1.5 10^3/uL (0.0-0.7); Eosinophils Percent Auto 28.8 % (0.9-7.0); Hematocrit 39.3 % (36.0-48.0); Hemoglobin 13.4 g/dL (12.0-16.0); Immature Granulocytes Abs Auto 0.01 10^3/uL (0.00-0.03); Immature Granulocytes Pct Auto 0.2 % (0.0-0.5); Lymphocytes Percent Auto 19.5 % (20.5-60.0); Mean Corpuscular HGB Conc 34.1 g/dL (29.9-35.2); Mean Corpuscular Hemoglobin 31.3 pg (26.7-34.0); Mean Corpuscular Volume 91.8 fL (81.0-99.0); Mean Platelet Volume 10.9 fL (9.5-13.5); Monocytes Absolute Auto 0.3 10^3/uL (0.3-0.8); Monocytes Percent Auto 5.2 % (1.7-12.0); Neutrophils Absolute Auto 2.3 10^3/uL (1.4-6.5); Neutrophils Percent Auto 45.9 % (43.0-75.0); Platelet Count 320 10^3/uL (150-450); Red Blood Count 4.28 10^6/uL (4.20-5.40); Red Cell Distribution Width 11.9 % (11.0-15.0)
[2024-02-15 09:26] LABS: Alanine Aminotransferase 19 U/L (14-59); Albumin Globulin Ratio 1.1; Albumin Level 3.4 g/dL (3.4-5.0); Alkaline Phosphatase 100 U/L (46-116); Anion Gap 9.3; Aspartate Amino Transferase 19 U/L (15-37); BUN Creatinine Ratio 12.5; Bilirubin Total 0.7 mg/dL (0.2-1.0); Calcium 9.2 mg/dL (8.5-10.1); Carbon Dioxide 28.2 mmol/L (21.0-32.0); Chloride 103 mmol/L (98-107); Estimated GFR (African America >60 (>=60 mL/min/1.73m^2); Estimated GFR (Non-African Ame 58 (>=60 mL/min/1.73m^2); Globulin 3.1 g/dL; Glucose 97 mg/dL (74-106); Potassium 3.5 mmol/L (3.5-5.1); Sodium 137 mmol/L (136-145); Total Protein 6.5 g/dL (6.4-8.2); Troponin I High Sensitivity 5.4 pg/mL (4.0-51.3)
== END 2024-02-15 11:46 | disposition home or self-care (01) ==
PROVIDERS: Emergency Provider Student in an Organized Health Care Education/Training Program
DX: K80.50 Calculus of bile duct without cholangitis or cholecystitis without obstruction (principal); R74.8 Abnormal levels of other serum enzymes
CPT/HCPCS: 36415; 74177; 80053; 83690; 84484; 85025; 99284; Q9967

== ENCOUNTER 2024-03-15 07:59 | Outpatient (OUT) | payer MEDICARE, OTHER, SELFPAY ==
--- OUTSIDE RECORDS SUMMARY | 2024-03-15 08:15 | XMS_ITS | CCD ---
Author Organization [facility] Care Team Providers Care B2B Outside Sales Representative Name Role Phone DR ARIES LOFTON Attending Unavailable KIRSTY, DR ARIES Robison Consulting Unavailable KIRSTY, DR ARIES Robison Primary Care Unavailable PHILIPR, DR ARIES Robison Admitting Unavailable SOPHIE, CHAPINCITO Attending Unavailable SOPHIE, CHAPINCITO Consulting Unavailable SOPHIE, CHAPINCITO Admitting Unavailable SOPHIE, CHAPINCITO Admitting Unavailable SOPHIE, CHAPINCITO Attending Unavailable SOPHIE, CHAPINCITO Consulting Unavailable SOPHIE, CHAPINCITO Primary Care Unavailable SOPHIE, CHAPINCITO Admitting Unavailable SOPHIE, CHAPINCITO Attending Unavailable SOPHIE, CHAPINCITO Primary Care Unavailable QUIROZ, JEANNETTE Primary Care Unavailabl e QUIROZ, JEANNETTE Primary Care Unavailabl e Quiroz MACHINE HEEL BUILDER, Jeannette Unavailable Unallocated MD, Noms Provider Primary Care Provi jeremy Medications Current Medications Medication Drug Class(es) Dates Sig (Normalized) Sig (Original) dicyclomine hydrochloride 20 mg oral tablet (4 sources) Anticholinergic Start: 02-15-2024 End: 03-30-2024 take 1 tablet by mouth four times daily as needed dicyclomine (Bentyl) 20 MG tablet Indications: History of biliary colic Take 1 tablet (20 mg) by mouth 4 (four) times a day as needed (Abdominal cramping) 120 tablet 02/29/2024 03/30/2024 Active levothyroxine sodium 0.05 mg oral tablet (3 sources) l-Thyroxine Start: 05-17-2023 take 1 tablet by mouth once daily levothyroxine (Synthroid, Levoxyl) 50 MCG tablet Indications: Hypothyroidism, unspecified (CMS/HCC) TAKE 1 TABLET BY MOUTH DAILY 90 tablet 3 05/17/2023 Active Problems Problem Classification Problem Date Documented Da te Episodic/Chronic Administrative/social admission (4 sources) First encounter by subject; Translations: [Persons encountering health services in other specified circumstances] Onset: 02-29-2024 02-29-2024 Episodic Diseases of white blood cells (4 sources) Decreased white blood cell count, unspecified; Translations: [DECREASED WBC COUNT UNSPECIFIED] Onset: 06-02-2021 Chronic Immunizations and screening for infectious disease (2 sources) Needs influenza immunization; Translations: [Encounter for immunization] 02-29-2024 Episodic Other gastrointestinal disorders (4 sources) H/O: biliary disease; Translations: [Personal history of other diseases of the digestive system] Onset: 02-29-2024 02-29-2024 Episodic Other screening for suspected conditions (not mental disorders or infectious disease) (4 sources) Patient encounter status; Translations: [Encounter for screening mammogram for malignant neoplasm of breast] Onset: 02-29-2024 02-29-2024 Episodic Thyroid disorders (1 source) Hypothyroidism, unspecified; Translations: [HYPOTHYROIDISM UNSPECIFIED] Onset: 12-29-2021 Chronic Thyroid disorders (2 sources) Disorder of thyroid gland; Translations: [Disorder of thyroid, unspecified] 02-29-2024 Episodic Results Test Name Value Interpretation Reference Range Facil ity CBC AUTO DIFFon 12-25-2021 BASO # 0.0 103/ul Normal 0.0-0.1 [facility] Comment on above: Performed By: #### C BC #### [facility] [address] [address] [address] Hazel Fernandez Basophils/100 WBC (Bld) 0.9 % Normal 0.2-2.0 [facility] Comment on above: Performed By: #### C BC #### [facility] [address] [address] [address] Hazel Fernandez EO # 0.1 103/ul Normal 0.0-0.7 [facility] Comment on above: Performed By: #### C BC #### [facility] [address] [address] [address] Hazel Fernandez Eosinophils/100 WBC (Bld) 1.8 % Normal 0.9-7.0 [facility] Comment on above: Performed By: #### C BC #### [facility] [address] [place] [address] Dr. Hazel Fernandez Erythrocyte distribution width (RBC) [Ratio] 12.1 % Normal 11.0-15.0 [facility] Comment on above: Performed By: #### C BC #### [facility] [address] [place] [address] Dr. Hazel Fernandez Hematocrit (Bld) [Volume fraction] 38.2 % Normal 36.0-48.0 [facility] Comment on above: Performed By: #### C BC #### [facility] [address] [place] [address] Dr. Hazel Fernandez Hemoglobin (Bld) [Mass/Vol] 12.8 g/dL Normal 12.0-16.0 [facility] Comment on above: Performed By: #### C BC #### [facility] [address] [place] [address] Dr. Hazel Fernandez IG # 0.01 10e3/ul Normal 0.00-0.03 [facility] Comment on above: Performed By: #### C BC #### [facility] [address] [place] [address] Dr. Hazel Fernandez IG % 0.3 % Normal 0.0-0.5 [facility] Comment on above: Performed By: #### C BC #### [facility] [address] [place] [address] Dr. Hazel Fernandez LYMPH # 1.0 103/ul Critically low 1.2-3.8 [facility] Comment on above: Performed By: #### C BC #### [facility] [address] [place] [address] Dr. Hazel Fernandez Lymphocytes/100 WBC (Bld) 28.7 % Normal 20.5-60.0 [facility] Comment on above: Performed By: #### C BC #### [facility] [address] [place] [address] Dr. Hazel Fernandez MANUAL DIFF REQ NO Normal [facility] Comment on above: Performed By: #### C BC #### [facility] [address] [place] [address] Dr. Hazel Fernandez MCH (RBC) [Entitic mass] 30.9 pg Normal 26.7-34.[address] [facility] Comment on above: Performed By: #### C BC #### [facility] [address] [place] [address] Dr. Hazel Fernandez MCHC (RBC) [Mass/Vol] 33.5 g/dL Normal 29.9-35.[address] [facility] Comment on above: Performed By: #### C BC #### [facility] [address] [place] [address] Dr. Hazel Fernandez MCV (RBC) [Entitic vol] 92.3 fL Normal 81.0-99.0 [facility] Comment on above: Performed By: #### C BC #### [facility] [address] [place] [address] Dr. Hazel Fernandez MONO # 0.3 103/ul Normal 0.3-0.[address] [facility] Comment on above: Performed By: #### C BC #### [facility] [address] [place] [address] Dr. Hazel Fernandez Monocytes/100 WBC (Bld) 7.7 % Normal 1.7-12.0 [facility] Comment on above: Performed By: #### C BC #### [facility] [address] [place] [address] Dr. Hazel Fernandez NEUT # 2.1 103/ul Normal 1.4-6.[address] [facility] Comment on above: Performed By: #### C BC #### [facility] [address] [place] [address] Dr. Hazel Fernandez Neutrophils/100 WBC (Bld) 60.6 % Normal 43.0-75.[address] [facility] Comment on above: Performed By: #### C BC #### [facility] [address] [place] [address] Dr. Hazel Fernandez Platelet mean volume (Bld) [Entitic vol] 10.9 fL Normal 9.5-13.[address] [facility] Comment on above: Performed By: #### C BC #### [facility] [address] [address] [address] Hazel Fernandez PLT 324 103/ul Normal 150-450 [facility] Comment on above: Performed By: #### C BC #### [facility] [address] [address] [address] Hazel Fernandez RBC 4.14 106/ul Critically low 4.20-5.40 [facility] Comment on above: Performed By: #### C BC #### [facility] [address] [address] [address] Hazel Fernandez WBC 3.4 103/ul Critically low 4.0-11.0 [facility] Comment on above: Performed By: #### C BC #### [facility] [address] [address] [address] Hazel Fernandez FREE T3on 12-25-2021 FREE T3 2.28 pg/mlL Normal 2.18-3.98 [facility] Comment on above: Performed By: #### L IPID, BMP, TSH, LIVER, FT3 #### [facility] [address] [address] [address] Hazel Fernandez FREE T4on 12-25-2021 Free T4 [Mass/Vol] 1.08 ng/dL Normal 0.76-1.46 [facility] Comment on above: Performed By: #### L IPID, CMP #### [facility] [address] [address] [address] Hazel Fernandez LIPID PROFILEon 12-25-2021 CHOL-HDL RATIO NORM SEE BELOW Normal [facility] Comment on above: Result Comment: 3.3 - 4.4 LOW RISK 4.4 - 7.1 AVERAGE RISK 7.1 - 11.0 MODERATE RISK >11.0 HIGH RISK Performed By: #### L IPID, BMP, TSH, LIVER, FT3 #### [facility] [address] [address] [address] Hazel Fernandez Cholesterol [Mass/Vol] 219 mg/dL Critically high <=200 [facility] Comment on above: Performed By: #### L IPID, BMP, TSH, LIVER, FT3 #### [facility] [address] [address] [address] Hazel Fernandez Cholesterol in HDL [Mass/Vol] 91 mg/dL Critically high 40-60 [facility] Comment on above: Performed By: #### L IPID, BMP, TSH, LIVER, FT3 #### [facility] [address] [address] [address] Hazel Fernandez Cholesterol in LDL [Mass/Vol] 109.4 mg/dL Normal [facility] Comment on above: Performed By: #### L IPID, BMP, TSH, LIVER, FT3 #### [facility] [address] [address] [address] Hazel Fernandez Cholesterol.total/Cho lesterol in HDL [Mass ratio] 2.4 {ratio} Normal [facility] Comment on above: Performed By: #### L IPID, BMP, TSH, LIVER, FT3 #### [facility] [address] [address] [address] aHzel Fernandez HDL NORMAL > or = 60 mg/dl - LOW CARDIOVASCULAR RISK <40 mg/dl - HIGH CARDIOVASCULAR RISK Normal [facility] Comment on above: Performed By: #### L IPID, BMP, TSH, LIVER, FT3 #### [facility] [address] [address] [address] Hazel Fernandez LDL CALC NORMAL SEE BELOW Normal [facility] Comment on above: Result Comment: <100 mg/dl OPTIMAL 100 - 129 mg/dl NEAR OR ABOVE OPTIMAL 130 - 159 mg/dl BORDERLINE HIGH 160 - 189 mg/dl HIGH >190 mg/dl VERY HIGH Performed By: #### L IPID, BMP, TSH, LIVER, FT3 #### [facility] [address] [address] [address] Hazel Fernandez Triglyceride [Mass/Vol] 93 mg/dL Normal <=150 [facility] Comment on above: Performed By: #### L IPID, BMP, TSH, LIVER, FT3 #### [facility] [address] [address] [address] Hazel Fernandez VLDL CALC 18.6 mg/dL Normal [facility] Comment on above: Performed By: #### L IPID, BMP, TSH, LIVER, FT3 #### [facility] [address] [address] [address] Hazel Fernandez LIVER PROFILEon 12-25-2021 Albumin [Mass/Vol] 4.0 g/dL Normal 3.4-5.0 [facility] Comment on above: Performed By: #### L IPID, BMP, TSH, LIVER, FT3 #### [facility] [address] [place] [address] Dr. Hazel Fernandez Albumin/Globulin [Mass ratio] 1.2 {ratio} Normal [facility] Comment on above: Performed By: #### L IPID, BMP, TSH, LIVER, FT3 #### [facility] [address] [place] [address] Dr. Hazel Fernandez ALP [Catalytic activity/Vol] 100 U/L Normal 46-116 [facility] Comment on above: Performed By: #### L IPID, BMP, TSH, LIVER, FT3 #### [facility] [address] [place] [address] Dr. Hazel Fernandez ALT [Catalytic activity/Vol] 16 U/L Normal 14-59 [facility] Comment on above: Performed By: #### L IPID, BMP, TSH, LIVER, FT3 #### [facility] [address] [place] [address] Dr. Hazel Fernandez AST [Catalytic activity/Vol] 16 U/L Normal 15-37 [facility] Comment on above: Performed By: #### L IPID, BMP, TSH, LIVER, FT3 #### [facility] [address] [place] [address] Dr. Hazel Fernandez BILI, CONJUGATED 0.1 mg/dL Normal 0.0-0.2 [facility] Comment on above: Performed By: #### L IPID, BMP, TSH, LIVER, FT3 #### [facility] [address] [place] [address] Dr. Hazel Fernandez Bilirubin [Mass/Vol] 0.5 mg/dL Normal 0.2-1.0 [facility] Comment on above: Performed By: #### L IPID, BMP, TSH, LIVER, FT3 #### [facility] [address] [address] [address] Hazel Fernandez Globulin (S) [Mass/Vol] 3.3 g/dL Normal [facility] Comment on above: Performed By: #### L IPID, BMP, TSH, LIVER, FT3 #### [facility] [address] [place] [address] Dr. Hazel Fernandez Protein [Mass/Vol] 7.3 g/dL Normal 6.4-8.2 [facility] Comment on above: Performed By: #### L IPID, BMP, TSH, LIVER, FT3 #### [facility] [address] [place] [address] Dr. Hazel Fernandez PROF CHEM 8 (BAS METB)on Anion gap [Moles/Vol] 10.4 mmol/L Normal [facility] Comment on above: Performed By: #### L IPID, BMP, TSH, LIVER, FT3 #### [facility] [address] [place] [address] Dr. Hazel Fernandez Calcium [Mass/Vol] 9.3 mg/dL Normal 8.5-10.1 [facility] Comment on above: Performed By: #### L IPID, BMP, TSH, LIVER, FT3 #### [facility] [address] [place] [address] Dr. Hazel Fernandez Chloride [Moles/Vol] 101 mmol/L Normal 98-107 [facility] Comment on above: Performed By: #### L IPID, BMP, TSH, LIVER, FT3 #### [facility] [address] [place] [address] Dr. Hazel Fernandez CO2 [Moles/Vol] 30.3 mmol/L Normal 21.0-32.0 [facility] Comment on above: Performed By: #### L IPID, BMP, TSH, LIVER, FT3 #### [facility] [address] [place] [address] Dr. Hazel Fernandez Creatinine [Mass/Vol] 0.75 mg/dL Normal 0.55-1.02 [facility] Comment on above: Performed By: #### L IPID, BMP, TSH, LIVER, FT3 #### [facility] [address] [address] [address] Hazel Fernandez EGFR-AF BAHRAINI >60 Normal >=60 [facility] Comment on above: Performed By: #### L IPID, BMP, TSH, LIVER, FT3 #### [facility] [address] [address] [address] Hazel Fernandez EGFR-NON AF BAHRAINI >60 Normal >=60 [facility] Comment on above: Performed By: #### L IPID, BMP, TSH, LIVER, FT3 #### [facility] [address] [address] [address] Hazel Fernandez Glucose [Mass/Vol] 92 mg/dL Normal 74-106 [facility] Comment on above: Performed By: #### L IPID, BMP, TSH, LIVER, FT3 #### [facility] [address] [place] [address] Dr. Hazel Fernandez Potassium [Moles/Vol] 3.7 mmol/L Normal 3.5-5.[address] [facility] Comment on above: Performed By: #### L IPID, BMP, TSH, LIVER, FT3 #### [facility] [address] [address] [address] Hazel Fernandez Sodium [Moles/Vol] 138 mmol/L Normal 136-145 [facility] Comment on above: Performed By: #### L IPID, BMP, TSH, LIVER, FT3 #### [facility] [address] [address] [address] Hazel Fernandez Urea nitrogen [Mass/Vol] 16.0 mg/dL Normal 7.0-18.[address] [facility] Comment on above: Performed By: #### L IPID, BMP, TSH, LIVER, FT3 #### [facility] [address] [place] [address] Dr. Hazel Fernandez Urea nitrogen/Creatinine [Mass ratio] 21.3 mg/mg Normal [facility] Comment on above: Performed By: #### L IPID, BMP, TSH, LIVER, FT3 #### [facility] [address] [address] [address] Hazel Fernandez TSHon 12-25-2021 TSH 3.662 uIU/mL Normal 0.358-3.740 [facility] Comment on above: Performed By: #### L IPID, BMP, TSH, LIVER, FT3 #### [facility] [address] [place] [address] Dr. Hazel Fernandez CBC AUTO DIFFon 06-02-2021 BASO # 0.0 103/ul Normal 0.0-0.1 [facility] Comment on above: Performed By: #### L IPID, CMP #### [facility] [address] [place] [address] Dr. Hazel Fernandez Basophils/100 WBC (Bld) 0.8 % Normal 0.2-2.0 [facility] Comment on above: Performed By: #### L IPID, CMP #### [facility] [address] [place] [address] Dr. Hazel Fernandez EO # 0.1 103/ul Normal 0.0-0.[address] [facility] Comment on above: Performed By: #### L IPID, CMP #### [facility] [address] [place] [address] Dr. Hazel Fernandez Eosinophils/100 WBC (Bld) 1.6 % Normal 0.9-7.0 [facility] Comment on above: Performed By: #### L IPID, CMP #### [facility] [address] [place] [address] Dr. Hazel Fernandez Erythrocyte distribution width (RBC) [Ratio] 11.9 % Normal 11.0-15.[address] [facility] Comment on above: Performed By: #### L IPID, CMP #### [facility] [address] [place] [address] Dr. Hazel Fernandez Hematocrit (Bld) [Volume fraction] 39.6 % Normal 36.0-48.0 [facility] Comment on above: Performed By: #### L IPID, CMP #### [facility] [address] [address] [address] Hazel Fernandez Hemoglobin (Bld) [Mass/Vol] 13.1 g/dL Normal 12.0-16.0 [facility] Comment on above: Performed By: #### L IPID, CMP #### [facility] [address] [place] [address] Dr. Hazel Fernandez IG # 0.01 10e3/ul Normal 0.00-0.03 [facility] Comment on above: Performed By: #### L IPID, CMP #### [facility] [address] [place] [address] Dr. Hazel Fernandez IG % 0.3 % Normal 0.0-0.5 [facility] Comment on above: Performed By: #### L IPID, CMP #### [facility] [address] [place] [address] Dr. Hazel Fernandez LYMPH # 0.8 103/ul Critically low 1.2-3.8 [facility] Comment on above: Performed By: #### L IPID, CMP #### [facility] [address] [place] [address] Dr. Hazel Fernandez Lymphocytes/100 WBC (Bld) 21.7 % Normal 20.5-60.0 [facility] Comment on above: Performed By: #### L IPID, CMP #### [facility] [address] [place] [address] Dr. Hazel Fernandez MANUAL DIFF REQ NO Normal [facility] Comment on above: Performed By: #### L IPID, CMP #### [facility] [address] [place] [address] Dr. Hazel Fernandez MCH (RBC) [Entitic mass] 30.3 pg Normal 26.7-34.0 [facility] Comment on above: Performed By: #### L IPID, CMP #### [facility] [address] [place] [address] Dr. Hazel Fernandez MCHC (RBC) [Mass/Vol] 33.1 g/dL Normal 29.9-35.2 [facility] Comment on above: Performed By: #### L IPID, CMP #### [facility] [address] [address] [address] Hazel Fernandez MCV (RBC) [Entitic vol] 91.7 fL Normal 81.0-99.0 [facility] Comment on above: Performed By: #### L IPID, CMP #### [facility] [address] [place] [address] Dr. Hazel Fernandez MONO # 0.3 103/ul Normal 0.3-0.8 [facility] Comment on above: Performed By: #### L IPID, CMP #### [facility] [address] [place] [address] Dr. Hazel Fernandez Monocytes/100 WBC (Bld) 6.6 % Normal 1.7-12.0 [facility] Comment on above: Performed By: #### L IPID, CMP #### [facility] [address] [place] [address] Dr. Hazel Fernandez NEUT # 2.6 103/ul Normal 1.4-6.5 [facility] Comment on above: Performed By: #### L IPID, CMP #### [facility] [address] [place] [address] Dr. Hazel Fernandez Neutrophils/100 WBC (Bld) 69.0 % Normal 43.0-75.0 [facility] Comment on above: Performed By: #### L IPID, CMP #### [facility] [address] [place] [address] Dr. Hazel Fernandez Platelet mean volume (Bld) [Entitic vol] 10.5 fL Normal 9.5-13.5 [facility] Comment on above: Performed By: #### L IPID, CMP #### [facility] [address] [place] [address] Dr. Hazel Fernandez PLT 268 103/ul Normal 150-[address] [facility] Comment on above: Performed By: #### L IPID, CMP #### [facility] [address] [place] [address] Dr. Hazel Fernandez RBC 4.32 106/ul Normal 4.20-5.40 [facility] Comment on above: Performed By: #### L IPID, CMP #### [facility] [address] [place] [address] Dr. Hazel Fernandez WBC 3.8 103/ul Critically low 4.0-11.0 [facility] Comment on above: Performed By: #### L IPID, CMP #### [facility] [address] [place] [address] Dr. Hazel Fernandez INSULINon 05-01-2021 Insulin 4.9 uIU/mL Normal 2.6-24.[address] [facility] Comment on above: Performed By: #### I NSULIN #### [facility] [address] [place] [address] Dr. Hazel Fernandez CBC AUTO DIFFon 04-30-2021 BASO # 0.1 103/ul Normal 0.0-0.1 [facility] Comment on above: Performed By: #### L IPID, CMP #### [facility] [address] [place] [address] Dr. Hazel Fernandez Basophils/100 WBC (Bld) 1.4 % Normal 0.2-2.0 [facility] Comment on above: Performed By: #### L IPID, CMP #### [facility] [address] [place] [address] Dr. Hazel Fernandez EO # 0.0 103/ul Normal 0.0-0.7 [facility] Comment on above: Performed By: #### L IPID, CMP #### [facility] [address] [place] [address] Dr. Hazel Fernandez Eosinophils/100 WBC (Bld) 1.1 % Normal 0.9-7.0 [facility] Comment on above: Performed By: #### L IPID, CMP #### [facility] [address] [place] [address] Dr. Hazel Fernandez Erythrocyte distribution width (RBC) [Ratio] 11.9 % Normal 11.0-15.0 [facility] Comment on above: Performed By: #### L IPID, CMP #### [facility] [address] [place] [address] Dr. Hazel Fernandez Hematocrit (Bld) [Volume fraction] 38.5 % Normal 36.0-48.0 [facility] Comment on above: Performed By: #### L IPID, CMP #### [facility] [facility] [address] [place] [address] Dr. Hazel Fernandez Hemoglobin (Bld) [Mass/Vol] 12.5 g/dL Normal 12.0-16.0 [facility] Comment on above: Performed By: #### L IPID, CMP #### [facility] [address] [place] [address] Dr. Hazel Fernandez IG # 0.01 10e3/ul Normal 0.00-0.03 [facility] Comment on above: Performed By: #### L IPID, CMP #### [facility] [address] [place] [address] Dr. Hazel Fernandez IG % 0.3 % Normal 0.0-0.5 [facility] Comment on above: Performed By: #### L IPID, CMP #### [facility] [address] [place] [address] Dr. Hazel Fernandez LYMPH # 0.8 103/ul Critically low 1.2-3.8 [facility] Comment on above: Performed By: #### L IPID, CMP #### [facility] [address] [place] [address] Dr. Hazel Fernandez Lymphocytes/100 WBC (Bld) 24.0 % Normal 20.5-60.0 [facility] Comment on above: Performed By: #### L IPID, CMP #### [facility] [address] [place] [address] Dr. Hazel Fernandez MANUAL DIFF REQ NO Normal [facility] Comment on above: Performed By: #### L IPID, CMP #### [facility] [address] [place] [address] Dr. Hzael Fernandez MCH (RBC) [Entitic mass] 30.5 pg Normal 26.7-34.0 [facility] Comment on above: Performed By: #### L IPID, CMP #### [facility] [address] [address] [address] Hazel Fernandez MCHC (RBC) [Mass/Vol] 32.5 g/dL Normal 29.9-35.2 [facility] Comment on above: Performed By: #### L IPID, CMP #### [facility] [address] [place] [address] Dr. Hazel Fernandez MCV (RBC) [Entitic vol] 93.9 fL Normal 81.0-99.[address] [facility] Comment on above: Performed By: #### L IPID, CMP #### [facility] [address] [place] [address] Dr. Hazel Fernandez MONO # 0.3 103/ul Normal 0.3-0.[address] [facility] Comment on above: Performed By: #### L IPID, CMP #### [facility] [address] [place] [address] Dr. Hazel Fernandez Monocytes/100 WBC (Bld) 7.4 % Normal 1.7-12.0 [facility] Comment on above: Performed By: #### L IPID, CMP #### [facility] [address] [place] [address] Dr. Hazel Fernandez NEUT # 2.3 103/ul Normal 1.4-6.5 [facility] Comment on above: Performed By: #### L IPID, CMP #### [facility] [address] [place] [address] Dr. Hazel Fernandez Neutrophils/100 WBC (Bld) 65.8 % Normal 43.0-75.[address] [facility] Comment on above: Performed By: #### L IPID, CMP #### [facility] [address] [place] [address] Dr. Hazel Fernandez Platelet mean volume (Bld) [Entitic vol] 10.3 fL Normal 9.5-13.[address] [facility] Comment on above: Performed By: #### L IPID, CMP #### [facility] [address] [place] [address] Dr. Hazel Fernandez PLT 344 103/ul Normal 150-[address] [facility] Comment on above: Performed By: #### L IPID, CMP #### [facility] [address] [address] [address] Hazel Fernandez RBC 4.10 106/ul Critically low 4.20-5.40 [facility] Comment on above: Performed By: #### L IPID, CMP #### [facility] [address] [address] [address] Hazel Fernandez WBC 3.5 103/ul Critically low 4.0-11.0 [facility] Comment on above: Performed By: #### L IPID, CMP #### [facility] [address] [address] [address] Hazel Fernandez GLYCOHEMOGLOBIN A1Con 2020 ADA RECOMMENDATION ADA THERAPEUTIC TARGET 6.0 - 7.0 ACTION SUGGESTED > 7.0 Normal [facility] Comment on above: Performed By: #### A 1C #### [facility] [address] [address] [address] Hazel Fernandez Glucose [Mass/Vol] 114 mg/dL Normal [facility] Comment on above: Performed By: #### A 1C #### [facility] [address] [address] [address] Hazel Fernandez HbA1c (Bld) [Mass fraction] 5.6 % Normal <=6.0 [facility] Comment on above: Performed By: #### A 1C #### [facility] [address] [address] [address] Hazel Fernandez IRONon 04-30-2021 Iron [Mass/Vol] 69.0 ug/dL Normal 37.0-170.0 [facility] Comment on above: Performed By: #### L IPID, CMP #### [facility] [address] [place] [address] Dr. Hazel Fernandez LIPID PROFILEon 04-30-2021 CHOL-HDL RATIO NORM SEE BELOW Normal [facility] Comment on above: Result Comment: 3.3 - 4.4 LOW RISK 4.4 - 7.1 AVERAGE RISK 7.1 - 11.0 MODERATE RISK >11.0 HIGH RISK Performed By: #### L IPID, CMP #### [facility] [address] [address] [address] Hzael Fernandez Cholesterol [Mass/Vol] 214 mg/dL Critically high <=200 [facility] Comment on above: Performed By: #### L IPID, CMP #### [facility] [address] [address] [address] Hazel Fernandez Cholesterol in HDL [Mass/Vol] 90 mg/dL Normal [facility] Comment on above: Performed By: #### L IPID, CMP #### [facility] [address] [address] [address] Hazel Fernandez Cholesterol in LDL [Mass/Vol] 106.4 mg/dL Normal [facility] Comment on above: Performed By: #### L IPID, CMP #### [facility] [address] [address] [address] Hazel Fernandez Cholesterol.total/Cho lesterol in HDL [Mass ratio] 2.4 {ratio} Normal [facility] Comment on above: Performed By: #### L IPID, CMP #### [facility] [address] [address] [address] Hazel Fernandez HDL NORMAL > or = 60 mg/dl - LOW CARDIOVASCULAR RISK <40 mg/dl - HIGH CARDIOVASCULAR RISK Normal [facility] Comment on above: Performed By: #### L IPID, CMP #### [facility] [address] [address] [address] Hazel Fernandez LDL CALC NORMAL SEE BELOW Normal [facility] Comment on above: Result Comment: <100 mg/dl OPTIMAL 100 - 129 mg/dl NEAR OR ABOVE OPTIMAL 130 - 159 mg/dl BORDERLINE HIGH 160 - 189 mg/dl HIGH >190 mg/dl VERY HIGH Performed By: #### L IPID, CMP #### [facility] [address] [address] [address] Hazel Fernandez Triglyceride [Mass/Vol] 88 mg/dL Normal <=150 [facility] Comment on above: Performed By: #### L IPID, CMP #### [facility] [address] [address] [address] Hazel Fernandez VLDL CALC 17.6 mg/dL Normal [facility] Comment on above: Performed By: #### L IPID, CMP #### [facility] [address] [place] [address] Dr. Hazel Fernandez PROF 14(COMP METB)on 021 Albumin [Mass/Vol] 3.8 g/dL Normal 3.5-5.0 [facility] Comment on above: Performed By: #### L IPID, CMP #### [facility] [address] [place] [address] Dr. Hazel Fernandez Albumin/Globulin [Mass ratio] 1.1 {ratio} Normal [facility] Comment on above: Performed By: #### L IPID, CMP #### [facility] [address] [place] [address] Dr. Hazel Fernandez ALP [Catalytic activity/Vol] 109 U/L Normal 38-126 [facility] Comment on above: Performed By: #### L IPID, CMP #### [facility] [address] [place] [address] Dr. Hazel Fernandez ALT [Catalytic activity/Vol] 20 U/L Normal 9-52 [facility] Comment on above: Performed By: #### L IPID, CMP #### [facility] [address] [place] [address] Dr. Hazel Fernandez Anion gap [Moles/Vol] 9.2 mmol/L Normal [facility] Comment on above: Performed By: #### L IPID, CMP #### [facility] [address] [place] [address] Dr. Hazel Fernandez AST [Catalytic activity/Vol] 14 U/L Normal 14-36 [facility] Comment on above: Performed By: #### L IPID, CMP #### [facility] [address] [place] [address] Dr. Hazel Fernandez Bilirubin [Mass/Vol] 0.5 mg/dL Normal 0.2-1.3 [facility] Comment on above: Performed By: #### L IPID, CMP #### [facility] [address] [place] [address] Dr. Hazel Fernandez Calcium [Mass/Vol] 9.3 mg/dL Normal 8.4-10.2 [facility] Comment on above: Performed By: #### L IPID, CMP #### [facility] [address] [place] [address] Dr. Hazel Fernandez Chloride [Moles/Vol] 103 mmol/L Normal 98-[address] [facility] Comment on above: Performed By: #### L IPID, CMP #### [facility] [address] [place] [address] Dr. Hazel Fernandez CO2 [Moles/Vol] 31.8 mmol/L Critically high 22.0-30.[address] [facility] Comment on above: Performed By: #### L IPID, CMP #### [facility] [address] [place] [address] Dr. Hazel Fernandez Creatinine [Mass/Vol] 0.88 mg/dL Normal 0.52-1.[address] [facility] Comment on above: Performed By: #### L IPID, CMP #### [facility] [address] [place] [address] Dr. Hazel Fernandez EGFR-AF BAHRAINI >60 Normal >=60 [facility] Comment on above: Performed By: #### L IPID, CMP #### [facility] [address] [place] [address] Dr. Hazel Fernandez EGFR-NON AF BAHRAINI >60 Normal >=[address] [facility] Comment on above: Performed By: #### L IPID, CMP #### [facility] [address] [place] [address] Dr. Hazel Fernnadez Globulin (S) [Mass/Vol] 3.4 g/dL Normal [facility] Comment on above: Performed By: #### L IPID, CMP #### [facility] [address] [place] [address] Dr. Hazel Fernandez Glucose [Mass/Vol] 92 mg/dL Normal 74-106 [facility] Comment on above: Performed By: #### L IPID, CMP #### [facility] [address] [place] [address] Dr. Hazel Fernandez Potassium [Moles/Vol] 4.0 mmol/L Normal 3.4-5.0 [facility] Comment on above: Performed By: #### L IPID, CMP #### [facility] [address] [address] [address] Hazel Fernandez Protein [Mass/Vol] 7.2 g/dL Normal 6.1-8.2 [facility] Comment on above: Performed By: #### L IPID, CMP #### [facility] [address] [place] [address] Dr. Hazel Fernandez Sodium [Moles/Vol] 140 mmol/L Normal 137-145 [facility] Comment on above: Performed By: #### L IPID, CMP #### [facility] [address] [place] [address] Dr. Hazel Fernandez Urea nitrogen [Mass/Vol] 15.0 mg/dL Normal 7.0-17.0 [facility] Comment on above: Performed By: #### L IPID, CMP #### [facility] [address] [address] [address] Hazel Fernandez Urea nitrogen/Creatinine [Mass ratio] 17.0 mg/mg Normal [facility] Comment on above: Performed By: #### L IPID, CMP #### [facility] [address] [place] [address] Dr. Hazel Fernandez Vital Signs Date Time Vital Sign Value Performing Clinician Brooklyn carney 02-29-2024 14:50-0400 Body height 165.1 cm Jeannette Quiroz [employer]INE [employer] Work Phone: [facility] 02-29-2024 14:50-0400 Body mass index (BMI) [Ratio] 21.87 kg/m2 Jeannette Quiroz MACHINE HEEL [employer] Work Phone: [facility] 02-29-2024 14:50-0400 Body temperature 97.3 [degF] Jeannette Quiroz MACHINE HEEL [employer]DER Work Phone: [facility] 02-29-2024 14:50-0400 Body weight 59.6 kg Jeannette Quiroz MACHINE HEEL [employer] Work Phone: [facility] 02-29-2024 14:50-0400 Diastolic blood pressure 62 mm[Hg] Jeannette Gank MACHINE HEEL [employer]DER Work Phone: [facility] 02-29-2024 14:50-0400 Heart rate 62 /min Jeannette Smithtrick MACHINE HEEL [employer] Work Phone: [facility] 02-29-2024 14:50-0400 Respiratory rate 16 /min Jeannette Gank [employer]ACHINE HE[employer] Work Phone: [facility] 02-29-2024 14:50-0400 Systolic blood pressure 112 mm[Hg] Jeannette Gank MACHINE HEEL BUILDER Work Phone: [facility] Healthcare Encounters Encounter Date Encounter Type Care Provider Facility Start: 02-29-2024 End: 02-29-2024 Periodic preventive med est patient 40-64yrs Jeannette Gank MACHINE HEEL BUILDER Work Phone: [facility] Comment on above: Wellness examination (Primary Dx); Encounter to establish care; History of biliary colic; Encounter for screening mammogram for malignant neoplasm of breast; Need for immunization against influenza Start: 02-29-2024 End: 02-29-2024 Bamboo flowsheet Jeannette Gank MACHINE HEEL BU[employer]DER Work Phone: [facility] Start: 02-29-2024 End: 02-29-2024 Bamboo flowsheet Jeannette Gank MACHINE HEEL BU[employer]DER Work Phone: [facility] Start: 02-29-2024 End: 02-29-2024 Patient encounter status Jeannette Quiroz MACHINE HEEL [employer]DER Work Phone: [facility] Healthcare Work Phone: Start: 02-21-2024 ambulatory JEANNETTE QUIROZ Fa cility:[facility] Start: 12-29-2021 Encounter for genera l adult medical examination without abnormal findings DR ARIES LOFTON [facility] Start: 12-25-2021 End: 12-26-[address] ARIES LOFTON Facility:[facility] Start: 12-25-2021 End: 12-26-2021 Encounter for general adult medical examination without abnormal findings DR ARIES LOFTON Facility:[facility] Start: 10-29-2021 ambulatory CHAPINCITO BARRIOS Facility: [facility] Start: 06-02-2021 End: 06-03-2021 ambulatory CHAPINCITO BARRIOS Facility:[facility] Start: 04-30-2021 End: 05-01-2021 ambulatory CHAPINCITOFLORESITA WEIMER Facility:[facility] Procedures Date Procedure Procedure Detail Performing Clinician Start: 10-30-2020 Mammography Jeannette platt NP Work Phone: Plan of Treatment Date Care Activity Detail Author Start: 12-19-2026 Screening for malign ant neoplasm of colon [facility] Start: 02-28-2025 Medicare Annual Well ness (AWV) Medicare Annual Wellness (AWV) [facility] Start: 10-04-2024 Screening for malign ant neoplasm of cervix [facility] Start: 05-31-2024 End: 05-31-2024 Patient encounter procedure 05/31/2024 10:00 AM EST Office Visit [facility] [address] [place] [id number] Jeannette Quiroz NP [address] [place] [phone] [facility] Start: 02-29-2024 End: 02-29-2024 Patient encounter procedure 02/29/2024 3:00 PM EDT Office Visit [facility] [address] [place] [id number] Jeannette Quiroz NP [address] [place] [phone] Arrived [facility] Comment on above: Arrived Start: 02-29-2024 End: 02-28-2025 CBC W Auto Differential panel - Blood CBC and differential Lab Routine Wellness examination Expected: 02/29/2024 (Approximate), Expires: 02/28/2025 [facility] Comment on above: Expected: 02/29/2024 (Approximate), Expires: 02/28/2025 Start: 02-29-2024 End: 02-28-2025 Comprehensive metabolic 2000 panel - Serum or Plasma Comprehensive metabolic panel Lab Routine Wellness examination Expected: 02/29/2024 (Approximate), Expires: 02/28/2025 [facility] Comment on above: Expected: 02/29/2024 (Approximate), Expires: 02/28/2025 Start: 02-29-2024 End: 04-30-2025 DBT Breast - bilateral screening Bilateral screening mammogram with tomosynthesis Imaging Routine Encounter for screening mammogram for malignant neoplasm of breast Expected: 02/29/2024, Expires: 04/30/2025 [facility] Comment on above: Expected: 02/29/2024 , Expires: 04/30/2025 Start: 02-29-2024 End: 02-28-2025 Hemoglobin A1c/Hemoglobin.total in Blood Hemoglobin A1c Lab Routine Wellness examination Expected: 02/29/2024 (Approximate), Expires: 02/28/2025 [facility] Comment on above: Expected: 02/29/2024 (Approximate), Expires: 02/28/2025 Start: 02-29-2024 End: 02-28-2025 Lipid 1996 panel - Serum or Plasma Lipid panel Lab Routine Wellness examination Expected: 02/29/2024 (Approximate), Expires: 02/28/2025 [facility] Comment on above: Expected: 02/29/2024 (Approximate), Expires: 02/28/2025 Start: 02-29-2024 End: 02-28-2025 TSH W/REFLEX TO FT4 TSH W/REFLEX TO FT4 Lab Routine Wellness examination Expected: 02/29/2024 (Approximate), Expires: 02/28/2025 [facility] Work Phone: Comment on above: Expected: 02/29/2024 (Approximate), Expires: 02/28/2025 Start: 01-09-2024 Influenza vaccination Influenza Vacc ine (#1) [facility] Start: 2023 Pneumococcal Vaccine : 65+ Years (1 of 1 - PCV) Pneumococcal Vaccine: 65+ Years (1 of 1 - PCV) [facility] Start: 10-23-2022 Screening for malign ant neoplasm of colon [facility] Start: 10-30-2021 Screening for malign ant neoplasm of breast Mammogram [facility] Start: 1979 Screening for malign ant neoplasm of cervix Pap Smear [facility] Start: 1958 Screening for malign ant neoplasm of colon [facility] Immunizations Immunization Date Immunization Notes Care Provider Fa cili 02-29-2024 influenza, seasonal, injectable, preservative free Jeannette Quiroz MACHINE HEEL BU[employer]DER Work Phone: [facility] 03-04-2023 influenza virus vaccine, unspecified formulation Jeannette Quiroz MACHINE HEEL BUILDER Work Phone: [facility] Healthcare Payers Date Payer Category Payer Private Health Insurance [facility] [id number] 2022 Medicare (Managed Care) [employer] [id number] 1959 Medicare [id number] 1959 Self-pay 1959 Unknown [id number] 1958 Unknown [id number] 1958 Unknown [id number] 1958 Unknown [id number] 1958 Unknown [id number] Social History Date Type Detail Facility Tobacco smoking stat [facility] Tobacco smoking consumption unknown [facility] Start: 1960 Sex assigned at Female [facility] Start: 02-28-2024 Gender identity Identifies as female gender (finding) [facility] Start: 02-29-2024 Sexual orientation Not on file [facility] Start: 02-29-2024 Tobacco smoking stat [facility] Never smoked tobacco [facility] Start: 02-29-2024 Tobacco use and exposure Smoke less tobacco non-user [facility] Start: 02-29-2024 Alcoholic beverage intake Life time non-drinker (finding) [facility] Start: 02-29-2024 History of Social function [facility] History of Present illness Narrative 03-07-2024 Jeannette Quiroz NP - 03/07/2024 12:48 PM Dash Quiroz NP - 02/29/2024 3:21 PM Dash Quiroz NP - 02/29/2024 3:00 PM EDT Note Date & Type Note Facility 03-07-2024 History of Presen t illness Narrative Associated Problem(s): History of biliary colic Was seen in ER on 02/14, was diagnosed with biliary colic. Referred to [facility] GI- reached out has not heard back yet. Associated Problem(s): Wellness examination I have reviewed Ht/Wt/BMI, I have reviewed recommended vaccines for patient's age, as well as all recommended screenings I have reviewed available care everywhere notes as well. I have recommended eating a balanced diet, as well as activity as chronic conditions allow It is recommended that the patient have a yearly eye exam, as well as twice a year dental exams Fu in this office for wellness on a yearly basis Diet: Eat three meals per day. Breakfast, lunch, and dinner. Avoid snacking. Avoid eating after 5/6 pm. Daily protein GOAL 35% of your intake; 30g per meal. Daily calorie GOAL 1,800-2,000 per day. Consider tracking your food intake on MyFtinessPal or LoseIt Water: Increase water intake; GOAL 64-80oz of water per day. Exercise: Increase activity. GOAL 30 minutes, 5 days per week. START SLOW. Start with 5 minutes, 5 days per week. Then increase to 10 days, 5 days per week. Continue to increase until you reach the goal. Increase steps; GOAL 10,000 steps per day. Be sure to get adequate sleep; GOAL 6-8 hours of sleep per night. Images from the original note were not included. Subjective Patient ID: Roxanna Dominguez is a 63 y.o. female who presents for Establish Care. HPI Here today to establish care. Was seen in ER on 02/14, was diagnosed with biliary colic. Referred to [facility] GI- reached out has not heard back yet. This has happened to twice now. * Will reach out for patient. Diet: Mostly home cooked meals. Moderate protein. Fruits/vegetables Water: 64 ounces per day Caffeine: None Exercise: Daily. Sleep: 8-9 hours per night. Feels well rested. Review of Systems Constitutional: Negative for activity change, appetite change, chills, diaphoresis, fatigue, fever and unexpected weight change. HENT: Negative for congestion, ear pain, rhinorrhea, sinus pressure, sinus pain, sneezing, sore throat, trouble swallowing and voice change. Eyes: Negative for visual disturbance. Respiratory: Negative for cough, chest tightness, shortness of breath and wheezing. Cardiovascular: Negative for chest pain, palpitations and leg swelling. Gastrointestinal: Positive for abdominal pain. Negative for abdominal distention, blood in stool, constipation, diarrhea and vomiting. Genitourinary: Negative for decreased urine volume, dysuria, flank pain, frequency, hematuria and urgency. Musculoskeletal: Negative for arthralgias, gait problem, joint swelling and myalgias. Skin: Negative for rash. Neurological: Negative for dizziness, tremors, syncope, weakness, light-headedness and headaches. Psychiatric/Behavioral: Negative for decreased concentration and suicidal ideas. The patient is not nervous/anxious. Hematological: Does not bruise/bleed easily. Endocrine: Negative for cold intolerance, heat intolerance, polydipsia, polyphagia and polyuria. Objective Physical Exam Vitals reviewed. Constitutional: Appearance: Normal appearance. HENT: Head: Normocephalic and atraumatic. Right Ear: Tympanic membrane normal. Left Ear: Tympanic membrane normal. Nose: Nose normal. Mouth/Throat: Mouth: Mucous membranes are moist. Pharynx: Oropharynx is clear. Eyes: Pupils: Pupils are equal, round, and reactive to light. Cardiovascular: Rate and Rhythm: Normal rate and regular rhythm. Pulses: Normal pulses. Heart sounds: Normal heart sounds. Pulmonary: Effort: Pulmonary effort is normal. Breath sounds: Normal breath sounds. Abdominal: General: Abdomen is flat. Bowel sounds are normal. Palpations: Abdomen is soft. Musculoskeletal: General: Normal range of motion. Cervical back: Normal range of motion. Skin: General: Skin is warm and dry. Capillary Refill: Capillary refill takes less than 2 seconds. Neurological: General: No focal deficit present. Mental Status: She is alert and oriented to person, place, and time. Psychiatric: Mood and Affect: Mood normal. Behavior: Behavior normal. Assessment/Plan Problem List Items Addressed This Visit Encounter to establish care Wellness examination - Primary I have reviewed Ht/Wt/BMI, I have reviewed recommended vaccines for patient's age, as well as all recommended screenings I have reviewed available care everywhere notes as well. I have recommended eating a balanced diet, as well as activity as chronic conditions allow It is recommended that the patient have a yearly eye exam, as well as twice a year dental exams Fu in this office for wellness on a yearly basis Diet: Eat three meals per day. Breakfast, lunch, and dinner. Avoid snacking. Avoid eating after 5/6 pm. Daily protein GOAL 35% of your intake; 30g per meal. Daily calorie GOAL 1,800-2,000 per day. Consider tracking your food intake on MyFtinessPal or LoseIt Water: Increase water intake; GOAL 64-80oz of water per day. Exercise: Increase activity. GOAL 30 minutes, 5 days per week. START SLOW. Start with 5 minutes, 5 days per week. Then increase to 10 days, 5 days per week. Continue to increase until you reach the goal. Increase steps; GOAL 10,000 steps per day. Be sure to get adequate sleep; GOAL 6-8 hours of sleep per night. Relevant Orders TSH W/REFLEX TO FT4 Lipid panel Hemoglobin A1c Comprehensive metabolic panel CBC and differential History of biliary colic Was seen in ER on 02/14, was diagnosed with biliary colic. Referred to [facility]- reached out has not heard back yet. Relevant Medications dicyclomine (Bentyl) 20 MG tablet Encounter for screening mammogram for malignant neoplasm of breast Relevant Orders Bilateral screening mammogram with tomosynthesis Other Visit Diagnoses Need for immunization against influenza Relevant Orders Flu vaccine greater than or equal to 3 years old, preservative free IM (Completed) documented in this encounter [facility] Healthcare Instructions 02-29-2024 Patient Instructions Note Date & Type Note Facility 02-29-2024 Instructions Jeannette Quiroz NP - 02/29/2024 3:00 PM EDT FASTING labs ordered. Nothing to eat or drink for 12 hours prior to blood draw. Water and black coffee ok. Call if you need anything! documented in this encounter [facility] Healthcare Evaluation note Note Date & Type Note Facility Evaluation note Diagnosis Wellness examination- Primary Encounter to establish care History of biliary colic Encounter for screening mammogram for malignant neoplasm of breast Need for immunization against influenza Need for prophylactic vaccination and inoculation against influenza documented in this encounter [facility] Summary Purpose Family History No Family History Records FoundNo Family History Records Found Advance Directives No Advanced Directives Records FoundNo Advanced Directives Records Found Additional Source Comments INFORMATION SOURCE (unrecogn ized section and content) DATE CREATED AUTHOR 12/31/2021 [facility] DATE CREATED AUTHOR AUTHOR'S ORGANIZ ATION [facility] (unrecognized sec tion and content) B2B Outside Sales Representative Relationship Specialty Start Date End Date Unallocated, Mele Morgan MD [address] [place] [address] PCP - General Family Medicine 02/29/24 Jeannette Quiroz NP [address] [place] [address] Nurse Practitioner Family Medicine 02/08/24 [employer]2B Outside Sales Representative Relationship Specialty Start Date End Date Unallocated, Mele Morgan MD [address] [place] [address] PCP - General Family Medicine 02/29/24 Jeannette Quiroz NP [address] [place] [address] Nurse Practitioner Family Medicine 02/08/24 Reason for Visit (unrecogniz ed section and content) Reason Comments Establish Care FOR RECORDS PERTAINING TO PATIENTS WHO ARE [...] BE BASED ON THE PRIMARY CLINICAL RECORDS. [facility]. provides no warranty or guarantee of the accuracy or completeness of information in this document.
[2024-03-15 08:34] LABS: Basophils Absolute Auto 0.1 10^3/uL (0.0-0.1); Basophils Percent Auto 1.1 % (0.2-2.0); Hematocrit 38.8 % (36.0-48.0); Hemoglobin 12.9 g/dL (12.0-16.0); Immature Granulocytes Abs Auto 0.02 10^3/uL (0.00-0.03); Immature Granulocytes Pct Auto 0.5 % (0.0-0.5); Lymphocytes Absolute Auto 0.9 10^3/uL (1.2-3.8); Lymphocytes Percent Auto 19.8 % (20.5-60.0); Mean Corpuscular HGB Conc 33.2 g/dL (29.9-35.2); Mean Corpuscular Hemoglobin 30.6 pg (26.7-34.0); Mean Corpuscular Volume 92.2 fL (81.0-99.0); Mean Platelet Volume 10.6 fL (9.5-13.5); Monocytes Absolute Auto 0.3 10^3/uL (0.3-0.8); Monocytes Percent Auto 6.9 % (1.7-12.0); Neutrophils Absolute Auto 2.1 10^3/uL (1.4-6.5); Neutrophils Percent Auto 48.7 % (43.0-75.0); Platelet Count 348 10^3/uL (150-450); Red Blood Count 4.21 10^6/uL (4.20-5.40); Red Cell Distribution Width 12.3 % (11.0-15.0); White Blood Count 4.4 10^3/uL (4.0-11.0)
[2024-03-15 08:49] LABS: Estimated Average Glucose 103 mg/dL; Glycohemoglobin A1C 5.2 % (4.5-6.2)
[2024-03-15 09:10] LABS: Anion Gap 11.3; BUN Creatinine Ratio 11.7; Bilirubin Total 0.6 mg/dL (0.2-1.0); Calcium 9.1 mg/dL (8.5-10.1); Carbon Dioxide 29.9 mmol/L (21.0-32.0); Chloride 106 mmol/L (98-107); Estimated GFR (African America >60 (>=60 mL/min/1.73m^2); Estimated GFR (Non-African Ame 60 (>=60 mL/min/1.73m^2); Glucose 93 mg/dL (74-106); Potassium 4.2 mmol/L (3.5-5.1); Sodium 143 mmol/L (136-145)
[2024-03-15 09:11] LABS: Alanine Aminotransferase 18 U/L (14-59); Albumin Globulin Ratio 1.1; Albumin Level 3.6 g/dL (3.4-5.0); Alkaline Phosphatase 106 U/L (46-116); Aspartate Amino Transferase 17 U/L (15-37); Chol HDL Ratio 2.1; Cholesterol 191 mg/dL (<=200); Globulin 3.2 g/dL; HDL Cholesterol 91 mg/dL (40-60); TSH W/ REFLEX FT4 6.563 uIU/mL (0.358-3.740); Total Protein 6.8 g/dL (6.4-8.2); Triglycerides 78 mg/dL (<=150); VLDL CHOLESTEROL 15.6 mg/dL
[2024-03-15 09:43] LABS: Free T4 1.13 ng/dL (0.76-1.46)
== END 2024-03-15 08:00 | disposition home or self-care (01) ==
LOC: LAB 08:01
DX: Z00.00 Encounter for general adult medical examination without abnormal findings (principal)
CPT/HCPCS: 36415; 80053; 80061; 83036; 84439; 84443; 85025

== ENCOUNTER 2024-03-23 10:30 | Outpatient (OUT) | payer MEDICARE, OTHER, SELFPAY ==
--- NOTE | 2024-03-23 10:33 | MM_ITS ---
Patient Name: FIDEL PLASCENCIA MR#: [id number] : 1960 Exam Date: 03/23/2024 Ordering Doctor: GLENIS QUIROZ RADIOLOGY REPORT PROCEDURE: MM TOMOSYNTHESIS SCREENING BI COMPARISON: MM TOMOSYNTHESIS SCREENING BI, 03/09/2023. MM TOMOSYNTHESIS SCREENING BI, 03/30/2017. INDICATIONS: Screening Calculator Name NCI Breast Cancer Risk Assessment Tool 5 Year Breast Cancer Risk 1.50% Lifetime Breast Cancer Risk 5.60% Personal Breast Cancer No Personal Ovarian Cancer No Treatments None Family Cancers Aunt-paternal with breast cancer at age 60. LOCATION: [facility] BREAST COMPOSITION: There are scattered areas of fibroglandular density. FINDINGS: DIAGNOSTIC CATEGORY 1--NEGATIVE. RIGHT BREAST: No significant suspicious finding. No significant change has occurred. LEFT BREAST: No significant suspicious finding. No significant change has occurred. RECOMMENDATIONS: ROUTINE MAMMOGRAM AND CLINICAL EVALUATION IN 12 MONTHS. PLEASE NOTE: A NORMAL MAMMOGRAM DOES NOT EXCLUDE THE POSSIBILITY OF BREAST CANCER. A CLINICALLY SUSPICIOUS PALPABLE LUMP SHOULD BE BIOPSIED. Dictated by: Scar Mora M.D. on 03/23/2024 at 15:33 Approved by: Scar Mora M.D. on 03/23/2024 at 15:35
--- OUTSIDE RECORDS SUMMARY | 2024-03-23 10:48 | XMS_ITS | CCD ---
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 Name Role Phone DR SID LOFTON Attending Unavailable PHILIPR, DR SID Robison Consulting Unavailable KIRSTY, DR SID Robison Primary Care Unavailable KAURERER, DR SID Robison Admitting Unavailable SOPHIE, CHAPINCITO Attending Unavailable SOPHIE, CHAPINCITO Consulting Unavailable SOPHIE, CHAPINCITO Admitting Unavailable SOPHIE, CHAPINCITO Admitting Unavailable SOPHIE, CHAPINCITO Attending Unavailable SOPHIE, CHAPINCITO Consulting Unavailable SOPHIE, CHAPINCITO Primary Care Unavailable SOPHIE, CHAPINCITO Admitting Unavailable SOPHIE, CHAPINCITO Attending Unavailable SOPHIE, CHAPINCITO Primary Care Unavailable SANON, JEANNETTE Primary Care Unavailabl e SANON, JEANNETTE Primary Care Unavailabl e Sanon LABOR SUPERVISOR, Jeannette Unavailable Unallocated MD, Noms Provider Primary Care Provi jeremy Sid Lofton MD Primary Care Provider [phone] Medications Current Medications Medication Drug Class(es) Dates Sig (Normalized) Sig (Original) dicyclomine hydrochloride 20 mg oral tablet (6 sources) Anticholinergic Start: 02-15-2024 End: 03-30-2024 take 1 tablet by mouth four times daily as needed dicyclomine (Bentyl) 20 MG tablet Indications: History of biliary colic Take 1 tablet (20 mg) by mouth 4 (four) times a day as needed (Abdominal cramping) 120 tablet 02/29/2024 03/30/2024 Active levothyroxine sodium 0.075 mg oral tablet (6 sources) l-Thyroxine Start: 03-16-2024 End: 03-16-2025 take 1 tablet by mouth before mealtime levothyroxine (Synthroid) 75 MCG tablet Indications: Hypothyroidism, unspecified (CMS/HCC) Take 1 tablet (75 mcg) by mouth in the morning. Take before meals. 30 tablet 2 03/16/2024 03/16/2025 Active Start: 05-17-2023 End: 03-16-2024 take 1 tablet by mouth once daily levothyroxine (Synthroid, Levoxyl) 50 MCG tablet Indications: Hypothyroidism, unspecified (CMS/HCC) TAKE 1 TABLET BY MOUTH DAILY 90 tablet 3 05/17/2023 03/16/2024 Discontinued (Dose adjustment) Problems Problem Classification Problem Date Documented Da te Episodic/Chronic Administrative/social admission (6 sources) First encounter by subject; Translations: [Persons encountering health services in other specified circumstances] Onset: 02-29-2024 02-29-2024 Episodic Diseases of white blood cells (4 sources) Decreased white blood cell count, unspecified; Translations: [DECREASED WBC COUNT UNSPECIFIED] Onset: 06-02-2021 Chronic Immunizations and screening for infectious disease (2 sources) Needs influenza immunization; Translations: [Encounter for immunization] 02-29-2024 Episodic Other gastrointestinal disorders (8 sources) H/O: biliary disease; Translations: [Personal history of other diseases of the digestive system] Onset: 02-29-2024 02-29-2024 Episodic Other screening for suspected conditions (not mental disorders or infectious disease) (6 sources) Patient encounter status; Translations: [Encounter for screening mammogram for malignant neoplasm of breast] Onset: 02-29-2024 02-29-2024 Episodic Thyroid disorders (2 sources) Hypothyroidism, unspecified; Translations: [Hypothyroidism] Onset: 12-29-2021 03-16-2024 Chronic Thyroid disorders (4 sources) Disorder of thyroid gland; Translations: [Disorder of thyroid, unspecified] 02-29-2024 Episodic Results Test Name Value Interpretation Reference Range Facility ALL CBC WITH AUTO DIFFon BASOPHILS ABSOLUTE AUTO 0.1 [facility] Basophils/100 WBC (Bld) 1.1 % 0.2 - 2.0 % [facility] Eosinophils/100 WBC (Bld) 23 % High 0.9 - 7.0 % [facility] Erythrocyte distribution width (RBC) [Ratio] 12.3 % 11.0 - 15.0 % [facility] Hematocrit (Bld) [Volume fraction] 38.8 % 36.0 - 48.0 % [facility] Hemoglobin (Bld) [Mass/Vol] 12.9 g/dL 12.0 - 16.0 g/dL [facility] IMMATURE GRANULOCYTES ABS AUTO 0.02 [facility] Immature granulocytes/100 WBC (Bld) 0.5 % 0.0 - 0.5 % [facility] Interpretation and review of laboratory results Abnormal [facility] LYMPHOCYTES ABSOLUTE AUTO 0.9 Low [facility] Lymphocytes/100 WBC (Bld) 19.8 % Low 20.5 - 60.0 % [facility] MCH (RBC) [Entitic mass] 30.6 pg 26.7 - 34.0 pg [facility] MCHC (RBC) [Mass/Vol] 33.2 g/dL 29.9 - 35.2 g/dL [facility] MCV (RBC) [Entitic vol] 92.2 fL 81.0 - 99.0 fL [facility] MONOCYTES ABSOLUTE AUTO 0.3 [facility] Monocytes/100 WBC (Bld) 6.9 % 1.7 - 12.0 % [facility] NEUTROPHILS ABSOLUTE AUTO 2.1 [facility] Neutrophils/100 WBC (Bld) 48.7 % 43.0 - 75.0 % [facility] Platelet mean volume (Bld) [Entitic vol] 10.6 fL 9.5 - 13.5 fL [facility] Healthc are TBH EO # 1 High [facility] TB PLT [facility] RBC 4.21 [facility] TB WBC 4.4 [facility] MLR HEMOGLOBIN A1Con 024 Glucose [Mass/Vol] 103 mg[facility] HbA1c (Bld) [Mass fraction] 5.2 % 4.5 - 6.2 % [facility] Comment on above: ADA RECOMMENDED LIMI T 4.0 - 6.0 ADA THERAPEUTIC TARGET < 7.0 ACTION SUGGESTED > 7.0 [facility] CBC AUTO DIFFon 12-25-2021 BASO # 0.0 103/ul Normal 0.0-0.1 [facility] Comment on above: Performed By: #### C BC #### [facility] [address] [address] [address] Hazel Fernandez Basophils/100 WBC (Bld) 0.9 % Normal 0.2-2.0 [facility] Comment on above: Performed By: #### C BC #### [facility] [address] [place] [address] Dr. Hazel Fernandez EO # 0.1 103/ul Normal 0.0-0.7 [facility] Comment on above: Performed By: #### C BC #### [facility] [address] [place] [address] Dr. Hazel Fernandez Eosinophils/100 WBC (Bld) 1.8 % Normal 0.9-7.0 [facility] Comment on above: Performed By: #### C BC #### [facility] [address] [place] [address] Dr. Hazel Fernandez Erythrocyte distribution width (RBC) [Ratio] 12.1 % Normal 11.0-15.0 [facility] Comment on above: Performed By: #### C BC #### [facility] [address] [place] [address] Dr. Hazel Fernandez Hematocrit (Bld) [Volume fraction] 38.2 % Normal 36.0-48.0 [facility] Comment on above: Performed By: #### C BC #### [facility] [address] [place] [address] Dr. Hazel Fernandez Hemoglobin (Bld) [Mass/Vol] 12.8 g/dL Normal 12.0-16.0 [facility] Comment on above: Performed By: #### C BC #### [facility] [address] [place] [address] Dr. Hazel Fernandez IG # 0.01 10e3/ul Normal 0.00-0.03 [facility] Comment on above: Performed By: #### C BC #### [facility] [address] [place] [address] Dr. Hazel Fernandez IG % 0.3 % Normal 0.0-0.5 [facility] Comment on above: Performed By: #### C BC #### [facility] [address] [place] [address] Dr. Hazel Fernandez LYMPH # 1.0 103/ul Critically low 1.2-3.8 [facility] Comment on above: Performed By: #### C BC #### [facility] [address] [place] [address] Dr. Hazel Fernandez Lymphocytes/100 WBC (Bld) 28.7 % Normal 20.5-60.0 [facility] Comment on above: Performed By: #### C BC #### [facility] [address] [place] [address] Dr. Hazel Fernandez MANUAL DIFF REQ NO Normal [facility] Comment on above: Performed By: #### C BC #### [facility] [address] [place] [address] Dr. Hazel Fernandez MCH (RBC) [Entitic mass] 30.9 pg Normal 26.7-34.0 [facility] Comment on above: Performed By: #### C BC #### [facility] [address] [place] [address] Dr. Hazel Fernandez MCHC (RBC) [Mass/Vol] 33.5 g/dL Normal 29.9-35.2 [facility] Comment on above: Performed By: #### C BC #### [facility] [address] [place] [address] Dr. Hazel Fernandez MCV (RBC) [Entitic vol] 92.3 fL Normal 81.0-99.0 [facility] Comment on above: Performed By: #### C BC #### [facility] [address] [place] [address] Dr. Hazel Fernandez MONO # 0.3 103/ul Normal 0.3-0.8 [facility] Comment on above: Performed By: #### C BC #### [facility] [address] [place] [address] Dr. Hazel Fernandez Monocytes/100 WBC (Bld) 7.7 % Normal 1.7-12.0 [facility] Comment on above: Performed By: #### C BC #### [facility] [address] [place] [address] Dr. Hazel Fernandez NEUT # 2.1 103/ul Normal 1.4-6.5 [facility] Comment on above: Performed By: #### C BC #### [facility] [address] [address] [address] Hazel Fernandez Neutrophils/100 WBC (Bld) 60.6 % Normal 43.0-75.0 [facility] Comment on above: Performed By: #### C BC #### [facility] [address] [address] [address] Hazel Fernandez Platelet mean volume (Bld) [Entitic vol] 10.9 fL Normal 9.5-13.5 [facility] Comment on above: Performed By: #### C BC #### [facility] [address] [place] [address] Dr. Hazel Fernandez PLT 324 103/ul Normal 150-450 [facility] Comment on above: Performed By: #### C BC #### [facility] [address] [place] [address] Dr. Hazel Fernandez RBC 4.14 106/ul Critically low 4.20-5.40 [facility] Comment on above: Performed By: #### C BC #### [facility] [address] [place] [address] Dr. Hazel Fernandez WBC 3.4 103/ul Critically low 4.0-11.0 [facility] Comment on above: Performed By: #### C BC #### [facility] [address] [place] [address] Dr. Hazel Fernandez FREE T3on 12-25-2021 FREE T3 2.28 pg/mlL Normal 2.18-3.98 [facility] Comment on above: Performed By: #### L IPID, BMP, TSH, LIVER, FT3 #### [facility] [address] [place] [address] Dr. Hazel Fernandez FREE T4on 12-25-2021 Free T4 [Mass/Vol] 1.08 ng/dL Normal 0.76-1.46 [facility] Comment on above: Performed By: #### L IPID, CMP #### [facility] [address] [place] [address] Dr. Hazel Fernandez LIPID PROFILEon 12-25-2021 CHOL-HDL RATIO NORM SEE BELOW Normal [facility] Comment on above: Result Comment: 3.3 - 4.4 LOW RISK 4.4 - 7.1 AVERAGE RISK 7.1 - 11.0 MODERATE RISK >11.0 HIGH RISK Performed By: #### L IPID, BMP, TSH, LIVER, FT3 #### [facility] [address] [address] [address] Hazel Fernandez Cholesterol [Mass/Vol] 219 mg/dL Critically high <=200 [facility] Comment on above: Performed By: #### L IPID, BMP, TSH, LIVER, FT3 #### [facility] [address] [address] [address] Hazel Fernandez Cholesterol in HDL [Mass/Vol] 91 mg/dL Critically high 40-60 [facility] Comment on above: Performed By: #### L IPID, BMP, TSH, LIVER, FT3 #### [facility] [address] [address] [address] Hazel Fernandez Cholesterol in LDL [Mass/Vol] 109.4 mg/dL Normal [facility] Comment on above: Performed By: #### L IPID, BMP, TSH, LIVER, FT3 #### [facility] [address] [address] [address] Hazel Fernandez Cholesterol.total/Cho lesterol in HDL [Mass ratio] 2.4 {ratio} Normal [facility] Comment on above: Performed By: #### L IPID, BMP, TSH, LIVER, FT3 #### [facility] [address] [address] [address] Hazel Fernandez HDL NORMAL > or = 60 mg/dl - LOW CARDIOVASCULAR RISK <40 mg/dl - HIGH CARDIOVASCULAR RISK Normal [facility] Comment on above: Performed By: #### L IPID, BMP, TSH, LIVER, FT3 #### [facility] [address] [address] [address] Hazel Fernandez LDL CALC NORMAL SEE BELOW Normal [facility] Comment on above: Result Comment: <100 mg/dl OPTIMAL 100 - 129 mg/dl NEAR OR ABOVE OPTIMAL 130 - 159 mg/dl BORDERLINE HIGH 160 - 189 mg/dl HIGH >190 mg/dl VERY HIGH Performed By: #### L IPID, BMP, TSH, LIVER, FT3 #### [facility] [address] [address] [address] Hazel Fernandez Triglyceride [Mass/Vol] 93 mg/dL Normal <=150 [facility] Comment on above: Performed By: #### L IPID, BMP, TSH, LIVER, FT3 #### [facility] [address] [address] [address] Hazel Fernandez VLDL CALC 18.6 mg/dL Normal [facility] Comment on above: Performed By: #### L IPID, BMP, TSH, LIVER, FT3 #### [facility] [address] [address] [address] Hazel Fernandez LIVER PROFILEon 12-25-2021 Albumin [Mass/Vol] 4.0 g/dL Normal 3.4-5.0 [facility] Comment on above: Performed By: #### L IPID, BMP, TSH, LIVER, FT3 #### [facility] [address] [address] [address] Hazel Fernandez Albumin/Globulin [Mass ratio] 1.2 {ratio} Normal [facility] Comment on above: Performed By: #### L IPID, BMP, TSH, LIVER, FT3 #### [facility] [address] [address] [address] Hazel Fernandez ALP [Catalytic activity/Vol] 100 U/L Normal 46-116 [facility] Comment on above: Performed By: #### L IPID, BMP, TSH, LIVER, FT3 #### [facility] [address] [address] [address] Hazel Fernandez ALT [Catalytic activity/Vol] 16 U/L Normal 14-59 [facility] Comment on above: Performed By: #### L IPID, BMP, TSH, LIVER, FT3 #### [facility] [address] [address] [address] Hazel Fernandez AST [Catalytic activity/Vol] 16 U/L Normal 15-37 [facility] Comment on above: Performed By: #### L IPID, BMP, TSH, LIVER, FT3 #### [facility] [address] [place] [address] Dr. Hazel Fernandez BILI, CONJUGATED 0.1 mg/dL Normal 0.0-0.2 [facility] Comment on above: Performed By: #### L IPID, BMP, TSH, LIVER, FT3 #### [facility] [address] [place] [address] Dr. Hazel Fernandez Bilirubin [Mass/Vol] 0.5 mg/dL Normal 0.2-1.0 [facility] Comment on above: Performed By: #### L IPID, BMP, TSH, LIVER, FT3 #### [facility] [address] [place] [address] Dr. Hazel Fernandez Globulin (S) [Mass/Vol] 3.3 g/dL Normal [facility] Comment on above: Performed By: #### L IPID, BMP, TSH, LIVER, FT3 #### [facility] [address] [place] [address] Dr. Hazel Fernandez Protein [Mass/Vol] 7.3 g/dL Normal 6.4-8.2 [facility] Comment on above: Performed By: #### L IPID, BMP, TSH, LIVER, FT3 #### [facility] [address] [place] [address] Dr. Hazel Fernandez PROF CHEM 8 (BAS METB)on Anion gap [Moles/Vol] 10.4 mmol/L Normal [facility] Comment on above: Performed By: #### L IPID, BMP, TSH, LIVER, FT3 #### [facility] [address] [place] [address] Dr. Hazel Fernandez Calcium [Mass/Vol] 9.3 mg/dL Normal 8.5-10.1 [facility] Comment on above: Performed By: #### L IPID, BMP, TSH, LIVER, FT3 #### [facility] [address] [place] [address] Dr. Hazel Fernandez Chloride [Moles/Vol] 101 mmol/L Normal 98-107 [facility] Comment on above: Performed By: #### L IPID, BMP, TSH, LIVER, FT3 #### [facility] [address] [address] [address] Hazel Fernandez CO2 [Moles/Vol] 30.3 mmol/L Normal 21.0-32.0 [facility] Comment on above: Performed By: #### L IPID, BMP, TSH, LIVER, FT3 #### [facility] [address] [address] [address] Hazel Fernandez Creatinine [Mass/Vol] 0.75 mg/dL Normal 0.55-1.02 [facility] Comment on above: Performed By: #### L IPID, BMP, TSH, LIVER, FT3 #### [facility] [address] [address] [address] Hazel Fernandez EGFR-AF ECUADOREAN >60 Normal >=60 [facility] Comment on above: Performed By: #### L IPID, BMP, TSH, LIVER, FT3 #### [facility] [address] [address] [address] Hazel Fernandez EGFR-NON AF ECUADOREAN >60 Normal >=60 [facility] Comment on above: Performed By: #### L IPID, BMP, TSH, LIVER, FT3 #### [facility] [address] [address] [address] Hazel Fernandez Glucose [Mass/Vol] 92 mg/dL Normal 74-106 [facility] Comment on above: Performed By: #### L IPID, BMP, TSH, LIVER, FT3 #### [facility] [address] [address] [address] Hazel Fernandez Potassium [Moles/Vol] 3.7 mmol/L Normal 3.5-5.1 [facility] Comment on above: Performed By: #### L IPID, BMP, TSH, LIVER, FT3 #### [facility] [address] [address] [address] Hazel Fernandez Sodium [Moles/Vol] 138 mmol/L Normal 136-145 [facility] Comment on above: Performed By: #### L IPID, BMP, TSH, LIVER, FT3 #### [facility] [address] [place] [address] Dr. Hazel Fernandez Urea nitrogen [Mass/Vol] 16.0 mg/dL Normal 7.0-18.0 [facility] Comment on above: Performed By: #### L IPID, BMP, TSH, LIVER, FT3 #### [facility] [address] [place] [address] Dr. Hazel Fernandez Urea nitrogen/Creatinine [Mass ratio] 21.3 mg/mg Normal [facility] Comment on above: Performed By: #### L IPID, BMP, TSH, LIVER, FT3 #### [facility] [address] [place] [address] Dr. Hazel Fernandez TSHon 12-25-2021 TSH 3.662 uIU/mL Normal 0.358-3.740 [facility] Comment on above: Performed By: #### L IPID, BMP, TSH, LIVER, FT3 #### [facility] [address] [place] [address] Dr. Hazel Fernandez CBC AUTO DIFFon 06-02-2021 BASO # 0.0 103/ul Normal 0.0-0.1 [facility] Comment on above: Performed By: #### L IPID, CMP #### [facility] [address] [place] [address] Dr. Hazel Fernandez Basophils/100 WBC (Bld) 0.8 % Normal 0.2-2.0 [facility] Comment on above: Performed By: #### L IPID, CMP #### [facility] [address] [place] [address] Dr. Hazel Fernandez EO # 0.1 103/ul Normal 0.0-0.7 [facility] Comment on above: Performed By: #### L IPID, CMP #### [facility] [address] [place] [address] Dr. Hazel Fernandez Eosinophils/100 WBC (Bld) 1.6 % Normal 0.9-7.0 [facility] Comment on above: Performed By: #### L IPID, CMP #### [facility] [address] [place] [address] Dr. Hazel Fernandez Erythrocyte distribution width (RBC) [Ratio] 11.9 % Normal 11.0-15.0 [facility] Comment on above: Performed By: #### L IPID, CMP #### [facility] [address] [place] [address] Dr. Hazel Fernandez Hematocrit (Bld) [Volume fraction] 39.6 % Normal 36.0-48.0 [facility] Comment on above: Performed By: #### L IPID, CMP #### [facility] [address] [place] [address] Dr. Hazel Fernandez Hemoglobin (Bld) [Mass/Vol] 13.1 g/dL Normal 12.0-16.0 [facility] Comment on above: Performed By: #### L IPID, CMP #### [facility] [address] [place] [address] Dr. Hazel Fernandez IG # 0.01 10e3/ul Normal 0.00-0.03 [facility] Comment on above: Performed By: #### L IPID, CMP #### [facility] [address] [place] [address] Dr. Hazel Fernandez IG % 0.3 % Normal 0.0-0.5 [facility] Comment on above: Performed By: #### L IPID, CMP #### [facility] [address] [place] [address] Dr. Hazel Fernandez LYMPH # 0.8 103/ul Critically low 1.2-3.8 [facility] Comment on above: Performed By: #### L IPID, CMP #### [facility] [address] [place] [address] Dr. Hazel Fernandez Lymphocytes/100 WBC (Bld) 21.7 % Normal 20.5-60.0 [facility] Comment on above: Performed By: #### L IPID, CMP #### [facility] [address] [place] [address] Dr. Hazel Fernandez MANUAL DIFF REQ NO Normal [facility] Comment on above: Performed By: #### L IPID, CMP #### [facility] [address] [place] [address] Dr. Hazel Fernandez MCH (RBC) [Entitic mass] 30.3 pg Normal 26.7-34.0 [facility] Comment on above: Performed By: #### L IPID, CMP #### [facility] [address] [place] [address] Dr. Hazel Fernandez MCHC (RBC) [Mass/Vol] 33.1 g/dL Normal 29.9-35.2 [facility] Comment on above: Performed By: #### L IPID, CMP #### [facility] [address] [place] [address] Dr. Hazel Fernandez MCV (RBC) [Entitic vol] 91.7 fL Normal 81.0-99.0 [facility] Comment on above: Performed By: #### L IPID, CMP #### [facility] [address] [place] [address] Dr. Hazel Fernandez MONO # 0.3 103/ul Normal 0.3-0.8 [facility] Comment on above: Performed By: #### L IPID, CMP #### [facility] [address] [place] [address] Dr. Hazel Fernandez Monocytes/100 WBC (Bld) 6.6 % Normal 1.7-12.0 [facility] Comment on above: Performed By: #### L IPID, CMP #### [facility] [address] [place] [address] Dr. Hazel Fernandez NEUT # 2.6 103/ul Normal 1.4-6.5 [facility] Comment on above: Performed By: #### L IPID, CMP #### [facility] [address] [place] [address] Dr. Hazel Fernandez Neutrophils/100 WBC (Bld) 69.0 % Normal 43.0-75.0 [facility] Comment on above: Performed By: #### L IPID, CMP #### [facility] [address] [place] [address] Dr. Hazel Fernandez Platelet mean volume (Bld) [Entitic vol] 10.5 fL Normal 9.5-13.5 [facility] Comment on above: Performed By: #### L IPID, CMP #### [facility] [address] [place] [address] Dr. Hazel Fernandez PLT 268 103/ul Normal 150-450 [facility] Comment on above: Performed By: #### L IPID, CMP #### [facility] [address] [address] [address] Hazel Fernandez RBC 4.32 106/ul Normal 4.20-5.40 [facility] Comment on above: Performed By: #### L IPID, CMP #### [facility] [address] [place] [address] Dr. Hazel Fernandez WBC 3.8 103/ul Critically low 4.0-11.0 [facility] Comment on above: Performed By: #### L IPID, CMP #### [facility] [address] [place] [address] Dr. Hazel Fernandez INSULINon 05-01-2021 Insulin 4.9 uIU/mL Normal 2.6-24.9 [facility] Comment on above: Performed By: #### I NSULIN #### [facility] [address] [place] [address] Dr. Hazel Fernandez CBC AUTO DIFFon 04-30-2021 BASO # 0.1 103/ul Normal 0.0-0.1 [facility] Comment on above: Performed By: #### L IPID, CMP #### [facility] [address] [place] [address] Dr. Hazel Fernandez Basophils/100 WBC (Bld) 1.4 % Normal 0.2-2.0 [facility] Comment on above: Performed By: #### L IPID, CMP #### [facility] [address] [place] [address] Dr. Hazel Fernandez EO # 0.0 103/ul Normal 0.0-0.7 [facility] Comment on above: Performed By: #### L IPID, CMP #### [facility] [facility] [address] [place] [address] Dr. Hazel Fernandez Eosinophils/100 WBC (Bld) 1.1 % Normal 0.9-7.0 [facility] Comment on above: Performed By: #### L IPID, CMP #### [facility] [address] [place] [address] Dr. Hazel Fernandez Erythrocyte distribution width (RBC) [Ratio] 11.9 % Normal 11.0-15.0 [facility] Comment on above: Performed By: #### L IPID, CMP #### [facility] [address] [place] [address] Dr. Hazel Fernandez Hematocrit (Bld) [Volume fraction] 38.5 % Normal 36.0-48.0 [facility] Comment on above: Performed By: #### L IPID, CMP #### [facility] [address] [place] [address] Dr. Hazel Fernandez Hemoglobin (Bld) [Mass/Vol] 12.5 g/dL Normal 12.0-16.0 [facility] Comment on above: Performed By: #### L IPID, CMP #### [facility] [address] [place] [address] Dr. Hazel Fernandez IG # 0.01 10e3/ul Normal 0.00-0.03 [facility] Comment on above: Performed By: #### L IPID, CMP #### [facility] [address] [place] [address] Dr. Hazel Fernandez IG % 0.3 % Normal 0.0-0.5 [facility] Comment on above: Performed By: #### L IPID, CMP #### [facility] [address] [place] [address] Dr. Hazel Fernandez LYMPH # 0.8 103/ul Critically low 1.2-3.8 [facility] Comment on above: Performed By: #### L IPID, CMP #### [facility] [address] [place] [address] Dr. Hazel Fernandez Lymphocytes/100 WBC (Bld) 24.0 % Normal 20.5-60.0 [facility] Comment on above: Performed By: #### L IPID, CMP #### [facility] [address] [place] [address] Dr. Hazel Fernandez MANUAL DIFF REQ NO Normal [facility] Comment on above: Performed By: #### L IPID, CMP #### [facility] [address] [place] [address] Dr. Hazel Fernandez MCH (RBC) [Entitic mass] 30.5 pg Normal 26.7-34.0 [facility] Comment on above: Performed By: #### L IPID, CMP #### [facility] [address] [place] [address] Dr. Hazel Fernandez MCHC (RBC) [Mass/Vol] 32.5 g/dL Normal 29.9-35.2 [facility] Comment on above: Performed By: #### L IPID, CMP #### [facility] [address] [place] [address] Dr. Hazel Fernandez MCV (RBC) [Entitic vol] 93.9 fL Normal 81.0-99.0 [facility] Comment on above: Performed By: #### L IPID, CMP #### [facility] [address] [place] [address] Dr. Hazel Fernandez MONO # 0.3 103/ul Normal 0.3-0.8 [facility] Comment on above: Performed By: #### L IPID, CMP #### [facility] [address] [place] [address] Dr. Hazel Fernandez Monocytes/100 WBC (Bld) 7.4 % Normal 1.7-12.0 [facility] Comment on above: Performed By: #### L IPID, CMP #### [facility] [address] [place] [address] Dr. Hazel Fernandez NEUT # 2.3 103/ul Normal 1.4-6.5 [facility] Comment on above: Performed By: #### L IPID, CMP #### [facility] [address] [place] [address] Dr. Hazel Fernandez Neutrophils/100 WBC (Bld) 65.8 % Normal 43.0-75.0 [facility] Comment on above: Performed By: #### L IPID, CMP #### [facility] [address] [address] [address] Hazel Fernandez Platelet mean volume (Bld) [Entitic vol] 10.3 fL Normal 9.5-13.5 [facility] Comment on above: Performed By: #### L IPID, CMP #### [facility] [address] [address] [address] Hazel Fernandez PLT 344 103/ul Normal 150-450 [facility] Comment on above: Performed By: #### L IPID, CMP #### [facility] [address] [address] [address] Hazel Fernandez RBC 4.10 106/ul Critically low 4.20-5.40 [facility] Comment on above: Performed By: #### L IPID, CMP #### [facility] [address] [address] [address] Hazel Fernandez WBC 3.5 103/ul Critically low 4.0-11.0 [facility] Comment on above: Performed By: #### L IPID, CMP #### [facility] [address] [place] [address] Dr. Hazel Fernandez GLYCOHEMOGLOBIN A1Con 2020 ADA RECOMMENDATION ADA THERAPEUTIC TARGET 6.0 - 7.0 ACTION SUGGESTED > 7.0 Normal [facility] Comment on above: Performed By: #### A 1C #### [facility] [address] [place] [address] Dr. Hazel Fernandez Glucose [Mass/Vol] 114 mg/dL Normal [facility] Comment on above: Performed By: #### A 1C #### [facility] [address] [place] [address] Dr. Hazel Fernandez HbA1c (Bld) [Mass fraction] 5.6 % Normal <=6.0 [facility] Comment on above: Performed By: #### A 1C #### [facility] [address] [place] [address] Dr. Hazel Fernandez IRONon 04-30-2021 Iron [Mass/Vol] 69.0 ug/dL Normal 37.0-170.0 [facility] Comment on above: Performed By: #### L IPID, CMP #### [facility] [address] [address] [address] Hazel Fernandez LIPID PROFILEon 04-30-2021 CHOL-HDL RATIO NORM SEE BELOW Normal [facility] Comment on above: Result Comment: 3.3 - 4.4 LOW RISK 4.4 - 7.1 AVERAGE RISK 7.1 - 11.0 MODERATE RISK >11.0 HIGH RISK Performed By: #### L IPID, CMP #### [facility] [address] [address] [address] Hazel Fernandez Cholesterol [Mass/Vol] 214 mg/dL Critically high <=200 [facility] Comment on above: Performed By: #### L IPID, CMP #### [facility] [address] [address] [address] Hazel Fernandez Cholesterol in HDL [Mass/Vol] 90 mg/dL Normal [facility] Comment on above: Performed By: #### L IPID, CMP #### [facility] [address] [address] [address] Hazel Fernandez Cholesterol in LDL [Mass/Vol] 106.4 mg/dL Normal [facility] Comment on above: Performed By: #### L IPID, CMP #### [facility] [address] [address] [address] Hazel Fernandez Cholesterol.total/Cho lesterol in HDL [Mass ratio] 2.4 {ratio} Normal [facility] Comment on above: Performed By: #### L IPID, CMP #### [facility] [address] [address] [address] Hazel Fernandez HDL NORMAL > or = 60 mg/dl - LOW CARDIOVASCULAR RISK <40 mg/dl - HIGH CARDIOVASCULAR RISK Normal [facility] Comment on above: Performed By: #### L IPID, CMP #### [facility] [address] [address] [address] Hazel Fernandez LDL CALC NORMAL SEE BELOW Normal [facility] Comment on above: Result Comment: <100 mg/dl OPTIMAL 100 - 129 mg/dl NEAR OR ABOVE OPTIMAL 130 - 159 mg/dl BORDERLINE HIGH 160 - 189 mg/dl HIGH >190 mg/dl VERY HIGH Performed By: #### L IPID, CMP #### [facility] [address] [address] [address] Hazel Fernandez Triglyceride [Mass/Vol] 88 mg/dL Normal <=150 [facility] Comment on above: Performed By: #### L IPID, CMP #### [facility] [address] [address] [address] Hazel Fernandez VLDL CALC 17.6 mg/dL Normal [facility] Comment on above: Performed By: #### L IPID, CMP #### [facility] [address] [place] [address] Dr. Hazel Fernandez PROF 14(COMP METB)on 021 Albumin [Mass/Vol] 3.8 g/dL Normal 3.5-5.0 [facility] Comment on above: Performed By: #### L IPID, CMP #### [facility] [address] [address] [address] Hazel Fernandez Albumin/Globulin [Mass ratio] 1.1 {ratio} Normal [facility] Comment on above: Performed By: #### L IPID, CMP #### [facility] [address] [address] [address] Hazel Fernandez ALP [Catalytic activity/Vol] 109 U/L Normal 38-126 [facility] Comment on above: Performed By: #### L IPID, CMP #### [facility] [address] [address] [address] Hazel Fernandez ALT [Catalytic activity/Vol] 20 U/L Normal 9-52 [facility] Comment on above: Performed By: #### L IPID, CMP #### [facility] [address] [address] [address] Hazel Fernandez Anion gap [Moles/Vol] 9.2 mmol/L Normal [facility] Comment on above: Performed By: #### L IPID, CMP #### [facility] [address] [address] [address] Hazel Fernandez AST [Catalytic activity/Vol] 14 U/L Normal 14-36 [facility] Comment on above: Performed By: #### L IPID, CMP #### [facility] [address] [address] [address] Hazel Fernandez Bilirubin [Mass/Vol] 0.5 mg/dL Normal 0.2-1.3 [facility] Comment on above: Performed By: #### L IPID, CMP #### [facility] [address] [address] [address] Hazel Fernandez Calcium [Mass/Vol] 9.3 mg/dL Normal 8.4-10.2 [facility] Comment on above: Performed By: #### L IPID, CMP #### [facility] [address] [place] [address] Dr. Hazel Fernandez Chloride [Moles/Vol] 103 mmol/L Normal 98-107 [facility] Comment on above: Performed By: #### L IPID, CMP #### [facility] [address] [address] [address] Hazel Fernandez CO2 [Moles/Vol] 31.8 mmol/L Critically high 22.0-30.0 [facility] Comment on above: Performed By: #### L IPID, CMP #### [facility] [address] [address] [address] Hazel Fernandez Creatinine [Mass/Vol] 0.88 mg/dL Normal 0.52-1.04 [facility] Comment on above: Performed By: #### L IPID, CMP #### [facility] [address] [address] [address] Hazel Fernandez EGFR-AF ECUADOREAN >60 Normal >=60 [facility] Comment on above: Performed By: #### L IPID, CMP #### [facility] [address] [address] [address] Hazel Fernandez EGFR-NON AF ECUADOREAN >60 Normal >=60 [facility] Comment on above: Performed By: #### L IPID, CMP #### [facility] [address] [address] [address] Hazel Fernandez Globulin (S) [Mass/Vol] 3.4 g/dL Normal [facility] Comment on above: Performed By: #### L IPID, CMP #### [facility] [address] [place] [address] Dr. Hazel Fernandez Glucose [Mass/Vol] 92 mg/dL Normal 74-106 [facility] Comment on above: Performed By: #### L IPID, CMP #### [facility] [address] [place] [address] Dr. Hazel Fernandez Potassium [Moles/Vol] 4.0 mmol/L Normal 3.4-5.0 [facility] Comment on above: Performed By: #### L IPID, CMP #### [facility] [address] [place] [address] Dr. Hazel Fernandez Protein [Mass/Vol] 7.2 g/dL Normal 6.1-8.2 [facility] Comment on above: Performed By: #### L IPID, CMP #### [facility] [address] [place] [address] Dr. Hazel Fernandez Sodium [Moles/Vol] 140 mmol/L Normal 137-145 [facility] Comment on above: Performed By: #### L IPID, CMP #### [facility] [address] [place] [address] Dr. Hazel Fernandez Urea nitrogen [Mass/Vol] 15.0 mg/dL Normal 7.0-17.0 [facility] Comment on above: Performed By: #### L IPID, CMP #### [facility] [address] [place] [address] Dr. Hazel Fernanedz Urea nitrogen/Creatinine [Mass ratio] 17.0 mg/mg Normal [facility] Comment on above: Performed By: #### L IPID, CMP #### [facility] [address] [place] [address] Dr. Hazel Fernandez Vital Signs Date Time Vital Sign Value Performing Clinician Faci lity 02-29-2024 14:50-0400 Body height 165.1 cm Jeannette Sanon LABOR SUPERVISOR Work Phone: [facility] 02-29-2024 14:50-0400 Body mass index (BMI) [Ratio] 21.87 kg/m2 Jeannette Sanon LABOR SUPERVISOR Work Phone: [facility] 02-29-2024 14:50-0400 Body temperature 97.3 [degF] Jeannette Sanon LABOR SUPERVISOR Work Phone: [facility] 02-29-2024 14:50-0400 Body weight 59.6 kg Jeannette Sanon LABOR SUPERVISOR Work Phone: [facility] 02-29-2024 14:50-0400 Diastolic blood pressure 62 mm[Hg] Jeannette Saonn LABOR SUPERVISOR Work Phone: [facility] 02-29-2024 14:50-0400 Heart rate 62 /min Jeannette Sanon LABOR SUPERVISOR Work Phone: [facility] 02-29-2024 14:50-0400 Respiratory rate 16 /min Jeannette Sanon LABOR SUPERVISOR Work Phone: [facility] 02-29-2024 14:50-0400 Systolic blood pressure 112 mm[Hg] Jeannette Sanon LABOR SUPERVISOR Work Phone: [facility] Encounters Encounter Date Encounter Type Care Provider Facility Start: 03-16-2024 End: 03-16-2024 Orders Only Jeannette Sanon LABOR SUPERVISOR Work Phone: [facility] Comment on above: History of biliary c olic (Primary Dx); Hypothyroidism, unspecified (CMS/HCC) Start: 03-15-2024 End: 03-15-2024 Clinisync Result Encounter Jeannette Sanon LABOR SUPERVISOR Work Phone: [facility] External Department Unsolicited Start: 03-15-2024 End: 03-15-2024 Clinisync Result Encounter Jeannette Sanon LABOR SUPERVISOR Work Phone: [facility] External Department Unsolicited Start: 02-29-2024 End: 02-29-2024 Periodic preventive med est patient 40-64yrs Jeannette Sanon LABOR SUPERVISOR Work Phone: [facility] Comment on above: Wellness examination (Primary Dx); Encounter to establish care; History of biliary colic; Encounter for screening mammogram for malignant neoplasm of breast; Need for immunization against influenza Start: 02-29-2024 End: 02-29-2024 Bamboo flowsheet Jeannette Sanon LABOR SUPERVISOR Work Phone: [facility] Start: 02-29-2024 End: 02-29-2024 Bamboo flowsheet Jeannette Sanon LABOR SUPERVISOR Work Phone: [facility] Start: 02-29-2024 End: 02-29-2024 Patient encounter status Jeannette Sanon LABOR SUPERVISOR Work Phone: [facility] Work Phone: Start: 02-21-2024 ambulatory JEANNETTE SANON Fa cility:[facility] Start: 12-29-2021 Encounter for genera l adult medical examination without abnormal findings DR SID LOFTON [facility] Start: 12-25-2021 End: 12-26-[address] SID LOFTON Facility:[facility] Start: 12-25-2021 End: 12-26-2021 Encounter for general adult medical examination without abnormal findings DR SID LOFTON Facility:[facility] Start: 10-29-2021 ambulatory CHAPINCITO BARRIOS Facility: [facility] Start: 06-02-2021 End: 06-03-2021 ambulatory CHAPINCITO BARRIOS Facility:[facility] Start: 04-30-2021 End: 05-01-2021 ambulatory CHAPINCITO BARRIOS Facility: Procedures Date Procedure Procedure Detail Performing Clinician Start: 03-15-2024 ALL CBC WITH AUTO DIFF Jeannette Sanon LABOR SUPERVISOR Work Phone: Start: 03-15-2024 MLR HEMOGLOBIN A1C Lynn Sanon LABOR SUPERVISOR Work Phone: Start: 10-30-2020 Mammography Jeannette platt NP Work Phone: Plan of Treatment Date Care Activity Detail Author Start: 12-19-2026 Screening for malign ant neoplasm of colon [facility] Start: 02-28-2025 Medicare Annual Well ness (AWV) Medicare Annual Wellness (AWV) [facility] Start: 10-04-2024 Screening for malign ant neoplasm of cervix [facility] Start: 05-31-2024 End: 05-31-2024 Patient encounter procedure 05/31/2024 10:00 AM EST [facility] [address] [place] [address] Jeannette Sanon NP [address] [place] [address] [facility] Start: 04-29-2024 End: 03-16-2025 TSH W/REFLEX TO FT4 TSH W/REFLEX TO FT4 Lab Routine Hypothyroidism, unspecified (CMS/HCC) Expected: 04/29/2024 (Approximate), Expires: 03/16/2025 [facility] Work Phone: Comment on above: Expected: 04/29/2024 (Approximate), Expires: 03/16/2025 Start: 02-29-2024 End: 02-29-2024 Patient encounter procedure 02/29/2024 3:00 PM EDT Office Visit [facility] [address] [place] [address] Jeannette Sanon NP [address] [place] [address] Arrived [facility] Comment on above: Arrived Start: 02-29-2024 End: 02-28-2025 CBC W Auto Differential panel - Blood CBC and differential Lab Routine Wellness examination Expected: 02/29/2024 (Approximate), Expires: 02/28/2025 [facility] Comment on above: Expected: 02/29/2024 (Approximate), Expires: 02/28/2025 Start: 02-29-2024 End: 02-28-2025 Comprehensive metabolic 2000 panel - Serum or Plasma Comprehensive metabolic panel Lab Routine Wellness examination Expected: 02/29/2024 (Approximate), Expires: 02/28/2025 [facility] Comment on above: Expected: 02/29/2024 (Approximate), Expires: 02/28/2025 Start: 02-29-2024 End: 04-30-2025 DBT Breast - bilateral screening Bilateral screening mammogram with tomosynthesis Imaging Routine Encounter for screening mammogram for malignant neoplasm of breast Expected: 02/29/2024, Expires: 04/30/2025 [facility] Comment on above: Expected: 02/29/2024 , Expires: 04/30/2025 Start: 02-29-2024 End: 02-28-2025 Hemoglobin A1c/Hemoglobin.total in Blood Hemoglobin A1c Lab Routine Wellness examination Expected: 02/29/2024 (Approximate), Expires: 02/28/2025 [facility] Comment on above: Expected: 02/29/2024 (Approximate), Expires: 02/28/2025 Start: 02-29-2024 End: 02-28-2025 Lipid 1996 panel - Serum or Plasma Lipid panel Lab Routine Wellness examination Expected: 02/29/2024 (Approximate), Expires: 02/28/2025 [facility] Comment on above: Expected: 02/29/2024 (Approximate), Expires: 02/28/2025 Start: 02-29-2024 End: 02-28-2025 TSH W/REFLEX TO FT4 TSH W/REFLEX TO FT4 Lab Routine Wellness examination Expected: 02/29/2024 (Approximate), Expires: 02/28/2025 [facility] Work Phone: Comment on above: Expected: 02/29/2024 (Approximate), Expires: 02/28/2025 Start: 01-09-2024 Influenza vaccination Influenza Vacc ine (#1) [facility] Start: 2023 Pneumococcal Vaccine : 65+ Years (1 of 1 - PCV) Pneumococcal Vaccine: 65+ Years (1 of 1 - PCV) [facility] Start: 10-23-2022 Screening for malign ant neoplasm of colon [facility] Start: 10-30-2021 Screening for malign ant neoplasm of breast Mammogram [facility] Start: 1979 Screening for malign ant neoplasm of cervix Pap Smear [facility] Start: 1960 Screening for malign ant neoplasm of colon [facility] Immunizations Immunization Date Immunization Notes Care Provider Regis anderson 02-29-2024 influenza, seasonal, injectable, preservative free Jeannette Sanon LABOR SUPERVISOR Work Phone: [facility] 03-04-2023 influenza virus vaccine, unspecified formulation Jeannette Sanon LABOR SUPERVISOR Work Phone: [facility] Payers Date Payer Category Payer Private Health Insurance [facility] [id number] 2022 Medicare (Managed Care) [employer] [id number] 1961 Medicare [id number] 1961 Self-pay 1959 Unknown [id number] 1958 Unknown [id number] 1958 Unknown [id number] 1958 Unknown [id number] 1958 Unknown [id number] Social History Date Type Detail Facility Tobacco smoking stat [facility] Tobacco smoking consumption unknown [facility] Start: 1960 Sex assigned at Female [facility] Start: 02-28-2024 Gender identity Identifies as female gender (finding) [facility] Start: 02-29-2024 Sexual orientation Not on file [facility] Start: 02-29-2024 Tobacco smoking stat [facility] Never smoked tobacco [facility] Start: 02-29-2024 Tobacco use and exposure Smoke less tobacco non-user [facility] Start: 02-29-2024 Alcoholic beverage intake Life time non-drinker (finding) [facility] Start: 02-29-2024 History of Social function [facility] History of Present illness Narrative 03-07-2024 Jeannette Sanon NP - 03/07/2024 12:48 PM EDAnais Sanon NP - 02/29/2024 3:21 PM Dash Sanon NP - 02/29/2024 3:00 PM EDT Note Date & Type Note Facility 03-07-2024 History of Presen t illness Narrative Associated Problem(s): History of biliary colic Was seen in ER on 02/14, was diagnosed with biliary colic. Referred to [facility]- reached out has not heard back [...] day. Consider tracking your food intake on [employer] or [employer] Water: Increase water intake; GOAL [...] was diagnosed with biliary colic. Referred to [facility] GI- reached out has not heard back [...] was diagnosed with biliary colic. Referred to [facility]- reached out has not heard back yet. Relevant Medications dicyclomine (Bentyl) 20 MG tablet Encounter for screening mammogram for malignant neoplasm of breast Relevant Orders Bilateral screening mammogram with tomosynthesis Other Visit Diagnoses Need for immunization against influenza Relevant Orders Flu vaccine greater than or equal to 3 years old, preservative free IM (Completed) documented in this encounter [facility] Instructions 02-29-2024 Patient Instructions Note Date & Type Note Facility 02-29-2024 Instructions Jeannette Sanon NP - 02/29/2024 3:00 PM EDT FASTING labs ordered. Nothing to eat or drink for 12 hours prior to blood draw. Water and black coffee ok. Call if you need anything! documented in this encounter [facility] Evaluation note Note Date & Type Note Facility Evaluation note Diagnosis Wellness examination- Primary Encounter to establish care History of biliary colic Encounter for screening mammogram for malignant neoplasm of breast Need for immunization against influenza Need for prophylactic vaccination and inoculation against influenza documented in this encounter [facility] Evaluation note Note Date & Type Note Facility Evaluation note Diagnosis Wellness examination- Primary Encounter to establish care History of biliary colic Encounter for screening mammogram for malignant neoplasm of breast Need for immunization against influenza Need for prophylactic vaccination and inoculation against influenza History of biliary colic- Primary Hypothyroidism, unspecified (CMS/HCC) documented in this encounter [facility] Summary Purpose Family History No Family History Records FoundNo Family History Records Found Advance Directives No Advanced Directives Records FoundNo Advanced Directives Records Found Additional Source Comments INFORMATION SOURCE (unrecogn ized section and content) DATE CREATED AUTHOR 12/31/2021 [facility] DATE CREATED AUTHOR AUTHOR'S ORGANIZ ATION 02/22/2024 [facility] Care Teams (unrecognized sec tion and content) 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 Specialty Start Date End Date Unallocated, Mele Morgan MD [address] [place] [address] PCP - General Family Medicine 02/29/24 Jeannette Sanon NP [address] [place] [address] Nurse Practitioner Family Medicine 02/08/24 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 Specialty Start Date End Date Unallocated, Mele Morgan MD [address] [place] [address] PCP - General Family Medicine 02/29/24 Jeannette Sanon NP [address] [place] [address] Nurse Practitioner Family Medicine 02/08/24 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 [employer] provides no warranty or guarantee of the accuracy or completeness of information in this document.
== END 2024-03-23 10:31 | disposition home or self-care (01) ==
LOC: MAMMO 10:31
DX: Z12.31 Encounter for screening mammogram for malignant neoplasm of breast (principal); Z80.3 Family history of malignant neoplasm of breast
CPT/HCPCS: 77063; 77067

== ENCOUNTER 2024-05-01 08:45 | Outpatient (OUT) | payer OTHER, MEDICARE, SELFPAY ==
--- OUTSIDE RECORDS SUMMARY | 2024-04-25 13:57 | XMS_ITS | CCD ---
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 Name Role Phone DR SID LOFTON Attending Unavailable PIHLIPR, DR SID Robison Consulting Unavailable KIRSTY, DR [...] SANON, JEANNETTE Primary Care Unavailabl e Sanon ELECTROCARDIOGRAPHIC TECHNICIAN, Jeannette Unavailable Unallocated , Noms Provider Primary Care Provi jeremy Sid Lofton MD Primary Care Provider Medications Current Medications Medication Drug Class(es) Dates [...] WITH AUTO DIFFon BASOPHILS ABSOLUTE AUTO 0.1 [facility] Basophils/100 WBC (Bld) 1.1 % 0.2 - 2.0 % [facility] Eosinophils/100 WBC (Bld) 23 % High 0.9 - 7.0 % [facility] Erythrocyte distribution width (RBC) [Ratio] 12.3 % 11.0 - 15.0 % [facility] Hematocrit (Bld) [Volume fraction] 38.8 % 36.0 - 48.0 % [facility] Healthcar e Hemoglobin (Bld) [Mass/Vol] 12.9 g/dL 12.0 - 16.0 g/dL [facility] IMMATURE GRANULOCYTES ABS AUTO 0.02 [facility] Immature granulocytes/100 WBC (Bld) 0.5 % 0.0 - 0.5 % [facility] Interpretation and review of laboratory results Abnormal [facility] LYMPHOCYTES ABSOLUTE AUTO 0.9 Low [facility] Lymphocytes/100 WBC (Bld) 19.8 % Low 20.5 - 60.0 % [facility] MCH (RBC) [Entitic mass] 30.6 pg 26.7 - 34.0 pg [facility] MCHC (RBC) [Mass/Vol] 33.2 g/dL 29.9 - 35.2 g/dL [facility] MCV (RBC) [Entitic vol] 92.2 fL 81.0 - 99.0 fL [facility] MONOCYTES ABSOLUTE AUTO 0.3 [facility] Monocytes/100 WBC (Bld) 6.9 % 1.7 - 12.0 % [facility] NEUTROPHILS ABSOLUTE AUTO 2.1 [facility] Neutrophils/100 WBC (Bld) 48.7 % 43.0 - 75.0 % [facility] Platelet mean volume (Bld) [Entitic vol] 10.6 fL 9.5 - 13.5 fL [facility] Healthc are TBH EO # 1 High [facility] TB PLT 348 [facility] RBC 4.21 [facility] Healthcar e TB WBC 4.4 [facility]car e [facility] Healthcar e MLR HEMOGLOBIN A1Con 024 Glucose [Mass/Vol] 103 mg[facility] HbA1c (Bld) [Mass fraction] 5.2 % 4.5 - 6.2 % [facility] Comment on above: ADA RECOMMENDED LIMI T 4.0 - 6.0 ADA THERAPEUTIC TARGET < 7.0 ACTION SUGGESTED > 7.0 [facility] NOM [facility] CBC AUTO DIFFon 12-25-2021 BASO # 0.0 103/ul Normal 0.0-0.1 [facility] Comment on above: Performed By: #### C BC #### [facility] [address] [address] [address] Hazel Fernandez Basophils/100 WBC (Bld) 0.9 % Normal 0.2-2.0 [facility] Comment on above: Performed By: #### C BC #### [facility] [address] [place] [address] Dr. Hazel Fernandez EO # 0.1 103/ul Normal 0.0-0.7 [facility] Comment on above: Performed By: #### C BC #### [facility] [address] [place] [address] Dr. Hazel Fernandez Eosinophils/100 WBC (Bld) 1.8 % Normal 0.9-7.0 [facility] Comment on above: Performed By: #### C BC #### [facility] [address] [place] [address] Dr. Hazel Fernandez Erythrocyte distribution width (RBC) [Ratio] 12.1 % Normal 11.0-15.0 [facility] Comment on above: Performed By: #### C BC #### [facility] [address] [place] [address] Dr. Hazel Fernandez Hematocrit (Bld) [Volume fraction] 38.2 % Normal 36.0-48.0 [facility] Comment on above: Performed By: #### C BC #### [facility] [address] [place] [address] Dr. Hazel Fernandez Hemoglobin (Bld) [Mass/Vol] 12.8 g/dL Normal 12.0-16.0 [facility] Comment on above: Performed By: #### C BC #### [facility] [address] [place] [address] Dr. Hazel Fernandez IG # 0.01 10e3/ul Normal 0.00-0.03 [facility] Comment on above: Performed By: #### C BC #### [facility] [address] [place] [address] Dr. Hazel Fernandez IG % 0.3 % Normal 0.0-0.5 [facility] Comment on above: Performed By: #### C BC #### [facility] [address] [place] [address] Dr. Hazel Fernandez LYMPH # 1.0 103/ul Critically low 1.2-3.8 [facility] Comment on above: Performed By: #### C BC #### [facility] [address] [place] [address] Dr. Hazel Fernandez Lymphocytes/100 WBC (Bld) 28.7 % Normal 20.5-60.0 [facility] Comment on above: Performed By: #### C BC #### [facility] [address] [place] [address] Dr. Hazel Fernandez MANUAL DIFF REQ NO Normal [facility] Comment on above: Performed By: #### C BC #### [facility] [address] [place] [address] Dr. Hazel Fernandez MCH (RBC) [Entitic mass] 30.9 pg Normal 26.7-34.0 [facility] Comment on above: Performed By: #### C BC #### [facility] [address] [place] [address] Dr. Hazel Fernandez MCHC (RBC) [Mass/Vol] 33.5 g/dL Normal 29.9-35.2 [facility] Comment on above: Performed By: #### C BC #### [facility] [address] [place] [address] Dr. Hazel Fernandez MCV (RBC) [Entitic vol] 92.3 fL Normal 81.0-99.0 [facility] Comment on above: Performed By: #### C BC #### [facility] [address] [place] [address] Dr. Hazel Fernandez MONO # 0.3 103/ul Normal 0.3-0.8 [facility] Comment on above: Performed By: #### C BC #### [facility] [address] [place] [address] Dr. Hazel Fernandez Monocytes/100 WBC (Bld) 7.7 % Normal 1.7-12.0 [facility] Comment on above: Performed By: #### C BC #### [facility] [address] [place] [address] Dr. Hazel Fernandez NEUT # 2.1 103/ul Normal 1.4-6.5 [facility] Comment on above: Performed By: #### C BC #### [facility] [address] [address] [address] Hazel Fernandez Neutrophils/100 WBC (Bld) 60.6 % Normal 43.0-75.0 [facility] Comment on above: Performed By: #### C BC #### [facility] [address] [address] [address] Hazel Fernandez Platelet mean volume (Bld) [Entitic vol] 10.9 fL Normal 9.5-13.5 [facility] Comment on above: Performed By: #### C BC #### [facility] [address] [place] [address] Dr. Hazel Fernandez PLT 324 103/ul Normal 150-450 [facility] Comment on above: Performed By: #### C BC #### [facility] [address] [place] [address] Dr. Hazel Fernandez RBC 4.14 106/ul Critically low 4.20-5.40 [facility] Comment on above: Performed By: #### C BC #### [facility] [address] [place] [address] Dr. Hazel Fernandez WBC 3.4 103/ul Critically low 4.0-11.0 [facility] Comment on above: Performed By: #### C BC #### [facility] [address] [place] [address] Dr. Hazel Fernandez FREE T3on 12-25-2021 FREE T3 2.28 pg/mlL Normal 2.18-3.98 [facility] Comment on above: Performed By: #### L IPID, BMP, TSH, LIVER, FT3 #### [facility] [address] [place] [address] Dr. Hazel Fernandez FREE T4on 12-25-2021 Free T4 [Mass/Vol] 1.08 ng/dL Normal 0.76-1.46 [facility] Comment on above: Performed By: #### L IPID, CMP #### [facility] [address] [place] [address] Dr. Hazel Fernandez LIPID PROFILEon 12-25-2021 CHOL-HDL RATIO NORM SEE BELOW Normal [facility] Comment on above: Result Comment: 3.3 - 4.4 LOW RISK 4.4 - 7.1 AVERAGE RISK 7.1 - 11.0 MODERATE RISK >11.0 HIGH RISK Performed By: #### L IPID, BMP, TSH, LIVER, FT3 #### [facility] [address] [address] [address] Hazel Fernandez Cholesterol [Mass/Vol] 219 mg/dL Critically high <=200 [facility] Comment on above: Performed By: #### L IPID, BMP, TSH, LIVER, FT3 #### [facility] [address] [address] [address] Hazel Fernandez Cholesterol in HDL [Mass/Vol] 91 mg/dL Critically high 40-60 [facility] Comment on above: Performed By: #### L IPID, BMP, TSH, LIVER, FT3 #### [facility] [address] [address] [address] Hazel Fernandez Cholesterol in LDL [Mass/Vol] 109.4 mg/dL Normal [facility] Comment on above: Performed By: #### L IPID, BMP, TSH, LIVER, FT3 #### [facility] [address] [address] [address] Hazel Fernandez Cholesterol.total/Cho lesterol in HDL [Mass ratio] 2.4 {ratio} Normal [facility] Comment on above: Performed By: #### L IPID, BMP, TSH, LIVER, FT3 #### [facility] [address] [address] [address] Hazel Fernandez HDL NORMAL > or = 60 mg/dl - LOW CARDIOVASCULAR RISK <40 mg/dl - HIGH CARDIOVASCULAR RISK Normal [facility] Comment on above: Performed By: #### L IPID, BMP, TSH, LIVER, FT3 #### [facility] [address] [address] [address] Hazel Fernandez LDL CALC NORMAL SEE BELOW Normal [facility] Comment on above: Result Comment: <100 mg/dl OPTIMAL 100 - 129 mg/dl NEAR OR ABOVE OPTIMAL 130 - 159 mg/dl BORDERLINE HIGH 160 - 189 mg/dl HIGH >190 mg/dl VERY HIGH Performed By: #### L IPID, BMP, TSH, LIVER, FT3 #### [facility] [address] [address] [address] Hazel Fernandez Triglyceride [Mass/Vol] 93 mg/dL Normal <=150 [facility] Comment on above: Performed By: #### L IPID, BMP, TSH, LIVER, FT3 #### [facility] [address] [address] [address] Hazel Fernandez VLDL CALC 18.6 mg/dL Normal [facility] Comment on above: Performed By: #### L IPID, BMP, TSH, LIVER, FT3 #### [facility] [address] [address] [address] Hazel Fernandez LIVER PROFILEon 12-25-2021 Albumin [Mass/Vol] 4.0 g/dL Normal 3.4-5.0 [facility] Comment on above: Performed By: #### L IPID, BMP, TSH, LIVER, FT3 #### [facility] [address] [address] [address] Hazel Fernandez Albumin/Globulin [Mass ratio] 1.2 {ratio} Normal [facility] Comment on above: Performed By: #### L IPID, BMP, TSH, LIVER, FT3 #### [facility] [address] [address] [address] Hazel Fernandez ALP [Catalytic activity/Vol] 100 U/L Normal 46-116 [facility] Comment on above: Performed By: #### L IPID, BMP, TSH, LIVER, FT3 #### [facility] [address] [address] [address] Hazel Fernandez ALT [Catalytic activity/Vol] 16 U/L Normal 14-59 [facility] Comment on above: Performed By: #### L IPID, BMP, TSH, LIVER, FT3 #### [facility] [address] [address] [address] Hazel Fernandez AST [Catalytic activity/Vol] 16 U/L Normal 15-37 [facility] Comment on above: Performed By: #### L IPID, BMP, TSH, LIVER, FT3 #### [facility] [address] [place] [address] Dr. Hazel Fernandez BILI, CONJUGATED 0.1 mg/dL Normal 0.0-0.2 [facility] Comment on above: Performed By: #### L IPID, BMP, TSH, LIVER, FT3 #### [facility] [address] [place] [address] Dr. Hazel Fernandez Bilirubin [Mass/Vol] 0.5 mg/dL Normal 0.2-1.0 [facility] Comment on above: Performed By: #### L IPID, BMP, TSH, LIVER, FT3 #### [facility] [address] [place] [address] Dr. Hazel Fernandez Globulin (S) [Mass/Vol] 3.3 g/dL Normal [facility] Comment on above: Performed By: #### L IPID, BMP, TSH, LIVER, FT3 #### [facility] [address] [place] [address] Dr. Hazel Fernandez Protein [Mass/Vol] 7.3 g/dL Normal 6.4-8.2 [facility] Comment on above: Performed By: #### L IPID, BMP, TSH, LIVER, FT3 #### [facility] [address] [place] [address] Dr. Hazel Fernandez PROF CHEM 8 (BAS METB)on Anion gap [Moles/Vol] 10.4 mmol/L Normal [facility] Comment on above: Performed By: #### L IPID, BMP, TSH, LIVER, FT3 #### [facility] [address] [place] [address] Dr. Hazel Fernandez Calcium [Mass/Vol] 9.3 mg/dL Normal 8.5-10.1 [facility] Comment on above: Performed By: #### L IPID, BMP, TSH, LIVER, FT3 #### [facility] [address] [place] [address] Dr. Hazel Fernandez Chloride [Moles/Vol] 101 mmol/L Normal 98-107 [facility] Comment on above: Performed By: #### L IPID, BMP, TSH, LIVER, FT3 #### [facility] [address] [address] [address] Hazel Fernandez CO2 [Moles/Vol] 30.3 mmol/L Normal 21.0-32.0 [facility] Comment on above: Performed By: #### L IPID, BMP, TSH, LIVER, FT3 #### [facility] [address] [address] [address] Hazel Fernandez Creatinine [Mass/Vol] 0.75 mg/dL Normal 0.55-1.02 [facility] Comment on above: Performed By: #### L IPID, BMP, TSH, LIVER, FT3 #### [facility] [address] [address] [address] Hazel Fernandez EGFR-AF PALESTINIAN >60 Normal >=60 [facility] Comment on above: Performed By: #### L IPID, BMP, TSH, LIVER, FT3 #### [facility] [address] [address] [address] Hazel Fernandez EGFR-NON AF PALESTINIAN >60 Normal >=60 [facility] Comment on above: Performed By: #### L IPID, BMP, TSH, LIVER, FT3 #### [facility] [address] [address] [address] Hazel Fernandez Glucose [Mass/Vol] 92 mg/dL Normal 74-106 [facility] Comment on above: Performed By: #### L IPID, BMP, TSH, LIVER, FT3 #### [facility] [address] [address] [address] Hazel Fernandez Potassium [Moles/Vol] 3.7 mmol/L Normal 3.5-5.1 [facility] Comment on above: Performed By: #### L IPID, BMP, TSH, LIVER, FT3 #### [facility] [address] [address] [address] Hazel Fernandez Sodium [Moles/Vol] 138 mmol/L Normal 136-145 [facility] Comment on above: Performed By: #### L IPID, BMP, TSH, LIVER, FT3 #### [facility] [address] [place] [address] Dr. Hazel Fernandez Urea nitrogen [Mass/Vol] 16.0 mg/dL Normal 7.0-18.0 [facility] Comment on above: Performed By: #### L IPID, BMP, TSH, LIVER, FT3 #### [facility] [address] [place] [address] Dr. Hazel Fernandez Urea nitrogen/Creatinine [Mass ratio] 21.3 mg/mg Normal [facility] Comment on above: Performed By: #### L IPID, BMP, TSH, LIVER, FT3 #### [facility] [address] [place] [address] Dr. Hazel Fernandez TSHon 12-25-2021 TSH 3.662 uIU/mL Normal 0.358-3.740 [facility] Comment on above: Performed By: #### L IPID, BMP, TSH, LIVER, FT3 #### [facility] [address] [place] [address] Dr. Hazel Fernandez CBC AUTO DIFFon 06-02-2021 BASO # 0.0 103/ul Normal 0.0-0.1 [facility] Comment on above: Performed By: #### L IPID, CMP #### [facility] [address] [place] [address] Dr. Hazel Fernandez Basophils/100 WBC (Bld) 0.8 % Normal 0.2-2.0 [facility] Comment on above: Performed By: #### L IPID, CMP #### [facility] [address] [place] [address] Dr. Hazel Fernandez EO # 0.1 103/ul Normal 0.0-0.7 [facility] Comment on above: Performed By: #### L IPID, CMP #### [facility] [address] [place] [address] Dr. Hazel Fernandez Eosinophils/100 WBC (Bld) 1.6 % Normal 0.9-7.0 [facility] Comment on above: Performed By: #### L IPID, CMP #### [facility] [address] [place] [address] Dr. Hazel Fernandez Erythrocyte distribution width (RBC) [Ratio] 11.9 % Normal 11.0-15.0 [facility] Comment on above: Performed By: #### L IPID, CMP #### [facility] [address] [place] [address] Dr. Hazel Fernandez Hematocrit (Bld) [Volume fraction] 39.6 % Normal 36.0-48.0 [facility] Comment on above: Performed By: #### L IPID, CMP #### [facility] [address] [place] [address] Dr. Hazel Fernandez Hemoglobin (Bld) [Mass/Vol] 13.1 g/dL Normal 12.0-16.0 [facility] Comment on above: Performed By: #### L IPID, CMP #### [facility] [address] [place] [address] Dr. Hazel Fernandez IG # 0.01 10e3/ul Normal 0.00-0.03 [facility] Comment on above: Performed By: #### L IPID, CMP #### [facility] [address] [place] [address] Dr. Hazel Fernandez IG % 0.3 % Normal 0.0-0.5 [facility] Comment on above: Performed By: #### L IPID, CMP #### [facility] [address] [place] [address] Dr. Hazel Fernandez LYMPH # 0.8 103/ul Critically low 1.2-3.8 [facility] Comment on above: Performed By: #### L IPID, CMP #### [facility] [address] [place] [address] Dr. Hazel Fernandez Lymphocytes/100 WBC (Bld) 21.7 % Normal 20.5-60.0 [facility] Comment on above: Performed By: #### L IPID, CMP #### [facility] [address] [place] [address] Dr. Hazel Fernandez MANUAL DIFF REQ NO Normal [facility] Comment on above: Performed By: #### L IPID, CMP #### [facility] [address] [place] [address] Dr. Hazel Fernandez MCH (RBC) [Entitic mass] 30.3 pg Normal 26.7-34.0 [facility] Comment on above: Performed By: #### L IPID, CMP #### [facility] [address] [place] [address] Dr. Hazel Fernandez MCHC (RBC) [Mass/Vol] 33.1 g/dL Normal 29.9-35.2 [facility] Comment on above: Performed By: #### L IPID, CMP #### [facility] [address] [place] [address] Dr. Hazel Fernandez MCV (RBC) [Entitic vol] 91.7 fL Normal 81.0-99.0 [facility] Comment on above: Performed By: #### L IPID, CMP #### [facility] [address] [place] [address] Dr. Hazel Fernandez MONO # 0.3 103/ul Normal 0.3-0.8 [facility] Comment on above: Performed By: #### L IPID, CMP #### [facility] [address] [place] [address] Dr. Hazel Fernandez Monocytes/100 WBC (Bld) 6.6 % Normal 1.7-12.0 [facility] Comment on above: Performed By: #### L IPID, CMP #### [facility] [address] [place] [address] Dr. Hazel Fernandez NEUT # 2.6 103/ul Normal 1.4-6.5 [facility] Comment on above: Performed By: #### L IPID, CMP #### [facility] [address] [place] [address] Dr. Hazel Fernandez Neutrophils/100 WBC (Bld) 69.0 % Normal 43.0-75.0 [facility] Comment on above: Performed By: #### L IPID, CMP #### [facility] [address] [place] [address] Dr. Hazel Fernandez Platelet mean volume (Bld) [Entitic vol] 10.5 fL Normal 9.5-13.5 [facility] Comment on above: Performed By: #### L IPID, CMP #### [facility] [address] [place] [address] Dr. Hazel Fernandez PLT 268 103/ul Normal 150-450 [facility] Comment on above: Performed By: #### L IPID, CMP #### [facility] [address] [address] [address] Hazel Fernandez RBC 4.32 106/ul Normal 4.20-5.40 [facility] Comment on above: Performed By: #### L IPID, CMP #### [facility] [address] [place] [address] Dr. Hazel Fernandez WBC 3.8 103/ul Critically low 4.0-11.0 [facility] Comment on above: Performed By: #### L IPID, CMP #### [facility] [address] [place] [address] Dr. Hazel Fernandez INSULINon 05-01-2021 Insulin 4.9 uIU/mL Normal 2.6-24.9 [facility] Comment on above: Performed By: #### I NSULIN #### [facility] [address] [place] [address] Dr. Hazel Fernandez CBC AUTO DIFFon 04-30-2021 BASO # 0.1 103/ul Normal 0.0-0.1 [facility] Comment on above: Performed By: #### L IPID, CMP #### [facility] [address] [place] [address] Dr. Hazel Fernandez Basophils/100 WBC (Bld) 1.4 % Normal 0.2-2.0 [facility] Comment on above: Performed By: #### L IPID, CMP #### [facility] [address] [place] [address] Dr. Hazel Fernandez EO # 0.0 103/ul Normal 0.0-0.7 [facility] Comment on above: Performed By: #### L IPID, CMP #### [facility] [address] [place] [address] Dr. Hazel Fernandez Eosinophils/100 WBC (Bld) 1.1 % Normal 0.9-7.0 [facility] Comment on above: Performed By: #### L IPID, CMP #### [facility] [address] [place] [address] Dr. Hazel Fernandez Erythrocyte distribution width (RBC) [Ratio] 11.9 % Normal 11.0-15.0 [facility] Comment on above: Performed By: #### L IPID, CMP #### [facility] [address] [place] [address] Dr. Hazel Fernandez Hematocrit (Bld) [Volume fraction] 38.5 % Normal 36.0-48.0 [facility] Comment on above: Performed By: #### L IPID, CMP #### [facility] [address] [place] [address] Dr. Hazel Fernandez Hemoglobin (Bld) [Mass/Vol] 12.5 g/dL Normal 12.0-16.0 [facility] Comment on above: Performed By: #### L IPID, CMP #### [facility] [address] [place] [address] Dr. Hazel Fernandez IG # 0.01 10e3/ul Normal 0.00-0.03 [facility] Comment on above: Performed By: #### L IPID, CMP #### [facility] [address] [place] [address] Dr. Hazel Fernandez IG % 0.3 % Normal 0.0-0.5 [facility] Comment on above: Performed By: #### L IPID, CMP #### [facility] [address] [place] [address] Dr. Hazel Fernandez LYMPH # 0.8 103/ul Critically low 1.2-3.8 [facility] Comment on above: Performed By: #### L IPID, CMP #### [facility] [address] [place] [address] Dr. Hazel Fernandez Lymphocytes/100 WBC (Bld) 24.0 % Normal 20.5-60.0 [facility] Comment on above: Performed By: #### L IPID, CMP #### [facility] [address] [place] [address] Dr. Hazel Fernandez MANUAL DIFF REQ NO Normal [facility] Comment on above: Performed By: #### L IPID, CMP #### [facility] [address] [place] [address] Dr. Hazel Fernandez MCH (RBC) [Entitic mass] 30.5 pg Normal 26.7-34.0 [facility] Comment on above: Performed By: #### L IPID, CMP #### [facility] [address] [place] [address] Dr. Hazel Fernandez MCHC (RBC) [Mass/Vol] 32.5 g/dL Normal 29.9-35.2 [facility] Comment on above: Performed By: #### L IPID, CMP #### [facility] [address] [place] [address] Dr. Hazel Fernandez MCV (RBC) [Entitic vol] 93.9 fL Normal 81.0-99.0 [facility] Comment on above: Performed By: #### L IPID, CMP #### [facility] [address] [place] [address] Dr. Hazel Fernandez MONO # 0.3 103/ul Normal 0.3-0.8 [facility] Comment on above: Performed By: #### L IPID, CMP #### [facility] [address] [place] [address] Dr. Hazel Fernandez Monocytes/100 WBC (Bld) 7.4 % Normal 1.7-12.0 [facility] Comment on above: Performed By: #### L IPID, CMP #### [facility] [address] [place] [address] Dr. Hazel Fernandez NEUT # 2.3 103/ul Normal 1.4-6.5 [facility] Comment on above: Performed By: #### L IPID, CMP #### [facility] [address] [place] [address] Dr. Hazel Fernandez Neutrophils/100 WBC (Bld) 65.8 % Normal 43.0-75.0 [facility] Comment on above: Performed By: #### L IPID, CMP #### [facility] [address] [address] [address] Hazel Fernandez Platelet mean volume (Bld) [Entitic vol] 10.3 fL Normal 9.5-13.5 [facility] Comment on above: Performed By: #### L IPID, CMP #### [facility] [address] [address] [address] Hazel Fernandez PLT 344 103/ul Normal 150-450 [facility] Comment on above: Performed By: #### L IPID, CMP #### [facility] [address] [address] [address] Hazel Fernandez RBC 4.10 106/ul Critically low 4.20-5.40 [facility] Comment on above: Performed By: #### L IPID, CMP #### [facility] [address] [address] [address] Hazel Fernandez WBC 3.5 103/ul Critically low 4.0-11.0 [facility] Comment on above: Performed By: #### L IPID, CMP #### [facility] [address] [place] [address] Dr. Hazel Fernandez GLYCOHEMOGLOBIN A1Con 2020 ADA RECOMMENDATION ADA THERAPEUTIC TARGET 6.0 - 7.0 ACTION SUGGESTED > 7.0 Normal [facility] Comment on above: Performed By: #### A 1C #### [facility] [address] [place] [address] Dr. Hazel Fernandez Glucose [Mass/Vol] 114 mg/dL Normal [facility] Comment on above: Performed By: #### A 1C #### [facility] [address] [place] [address] Dr. Hazel Fernandez HbA1c (Bld) [Mass fraction] 5.6 % Normal <=6.0 [facility] Comment on above: Performed By: #### A 1C #### [facility] [address] [place] [address] Dr. Hazel Fernandez IRONon 04-30-2021 Iron [Mass/Vol] 69.0 ug/dL Normal 37.0-170.0 [facility] Comment on above: Performed By: #### L IPID, CMP #### [facility] [address] [address] [address] Hazel Fernandez LIPID PROFILEon 04-30-2021 CHOL-HDL RATIO NORM SEE BELOW Normal [facility] Comment on above: Result Comment: 3.3 - 4.4 LOW RISK 4.4 - 7.1 AVERAGE RISK 7.1 - 11.0 MODERATE RISK >11.0 HIGH RISK Performed By: #### L IPID, CMP #### [facility] [address] [address] [address] Hazel Fernandez Cholesterol [Mass/Vol] 214 mg/dL Critically high <=200 [facility] Comment on above: Performed By: #### L IPID, CMP #### [facility] [address] [address] [address] Hazel Fernandez Cholesterol in HDL [Mass/Vol] 90 mg/dL Normal [facility] Comment on above: Performed By: #### L IPID, CMP #### [facility] [address] [address] [address] Hazel Fernandez Cholesterol in LDL [Mass/Vol] 106.4 mg/dL Normal [facility] Comment on above: Performed By: #### L IPID, CMP #### [facility] [address] [address] [address] Hazel Fernandez Cholesterol.total/Cho lesterol in HDL [Mass ratio] 2.4 {ratio} Normal [facility] Comment on above: Performed By: #### L IPID, CMP #### [facility] [address] [address] [address] Hazel Fernandez HDL NORMAL > or = 60 mg/dl - LOW CARDIOVASCULAR RISK <40 mg/dl - HIGH CARDIOVASCULAR RISK Normal [facility] Comment on above: Performed By: #### L IPID, CMP #### [facility] [address] [address] [address] Hazel Fernandez LDL CALC NORMAL SEE BELOW Normal [facility] Comment on above: Result Comment: <100 mg/dl OPTIMAL 100 - 129 mg/dl NEAR OR ABOVE OPTIMAL 130 - 159 mg/dl BORDERLINE HIGH 160 - 189 mg/dl HIGH >190 mg/dl VERY HIGH Performed By: #### L IPID, CMP #### [facility] [address] [address] [address] Hazel Fernandez Triglyceride [Mass/Vol] 88 mg/dL Normal <=150 [facility] Comment on above: Performed By: #### L IPID, CMP #### [facility] [address] [address] [address] Hazel Fernandez VLDL CALC 17.6 mg/dL Normal [facility] Comment on above: Performed By: #### L IPID, CMP #### [facility] [address] [place] [address] Dr. Hazel Fernandez PROF 14(COMP METB)on 021 Albumin [Mass/Vol] 3.8 g/dL Normal 3.5-5.0 [facility] Comment on above: Performed By: #### L IPID, CMP #### [facility] [address] [address] [address] Hazel Fernandez Albumin/Globulin [Mass ratio] 1.1 {ratio} Normal [facility] Comment on above: Performed By: #### L IPID, CMP #### [facility] [address] [address] [address] Hazel Fernandez ALP [Catalytic activity/Vol] 109 U/L Normal 38-126 [facility] Comment on above: Performed By: #### L IPID, CMP #### [facility] [address] [address] [address] Hazel Fernandez ALT [Catalytic activity/Vol] 20 U/L Normal 9-52 [facility] Comment on above: Performed By: #### L IPID, CMP #### [facility] [address] [address] [address] Hazel Fernandez Anion gap [Moles/Vol] 9.2 mmol/L Normal [facility] Comment on above: Performed By: #### L IPID, CMP #### [facility] [address] [address] [address] Hazel Fernandez AST [Catalytic activity/Vol] 14 U/L Normal 14-36 [facility] Comment on above: Performed By: #### L IPID, CMP #### [facility] [address] [address] [address] Hazel Fernandez Bilirubin [Mass/Vol] 0.5 mg/dL Normal 0.2-1.3 [facility] Comment on above: Performed By: #### L IPID, CMP #### [facility] [address] [address] [address] Hazel Fernandez Calcium [Mass/Vol] 9.3 mg/dL Normal 8.4-10.2 [facility] Comment on above: Performed By: #### L IPID, CMP #### [facility] [address] [place] [address] Dr. Hazel Fernandez Chloride [Moles/Vol] 103 mmol/L Normal 98-107 [facility] Comment on above: Performed By: #### L IPID, CMP #### [facility] [address] [address] [address] Hazel Fernandez CO2 [Moles/Vol] 31.8 mmol/L Critically high 22.0-30.0 [facility] Comment on above: Performed By: #### L IPID, CMP #### [facility] [address] [address] [address] Hazel Fernandez Creatinine [Mass/Vol] 0.88 mg/dL Normal 0.52-1.04 [facility] Comment on above: Performed By: #### L IPID, CMP #### [facility] [address] [address] [address] Hazel Fernandez EGFR-AF PALESTINIAN >60 Normal >=60 [facility] Comment on above: Performed By: #### L IPID, CMP #### [facility] [address] [address] [address] Hazel Fernandez EGFR-NON AF PALESTINIAN >60 Normal >=60 [facility] Comment on above: Performed By: #### L IPID, CMP #### [facility] [address] [address] [address] Hazel Fernandez Globulin (S) [Mass/Vol] 3.4 g/dL Normal [facility] Comment on above: Performed By: #### L IPID, CMP #### [facility] [address] [place] [address] Dr. Hazel Fernandez Glucose [Mass/Vol] 92 mg/dL Normal 74-106 [facility] Comment on above: Performed By: #### L IPID, CMP #### [facility] [address] [place] [address] Dr. Hazel Fernandez Potassium [Moles/Vol] 4.0 mmol/L Normal 3.4-5.0 [facility] Comment on above: Performed By: #### L IPID, CMP #### [facility] [address] [place] [address] Dr. Hazel Fernandez Protein [Mass/Vol] 7.2 g/dL Normal 6.1-8.2 [facility] Comment on above: Performed By: #### L IPID, CMP #### [facility] [address] [place] [address] Dr. Hazel Fernandez Sodium [Moles/Vol] 140 mmol/L Normal 137-145 [facility] Comment on above: Performed By: #### L IPID, CMP #### [facility] [address] [place] [address] Dr. Hazel Fernandez Urea nitrogen [Mass/Vol] 15.0 mg/dL Normal 7.0-17.0 [facility] Comment on above: Performed By: #### L IPID, CMP #### [facility] [address] [place] [address] Dr. Hazel Fernandez Urea nitrogen/Creatinine [Mass ratio] 17.0 mg/mg Normal [facility] Comment on above: Performed By: #### L IPID, CMP #### [facility] [address] [place] [address] Dr. Hazel Fernandez Vital Signs Date Time Vital Sign Value Performing Clinician Faci lity 02-29-2024 14:50-0400 Body height 165.1 cm Jeannette Sanon ELECTROCARDIOGRAPHIC TECHNICIAN Work Phone: [facility] 02-29-2024 14:50-0400 Body mass index (BMI) [Ratio] 21.87 kg/m2 Jeannette Sanon ELECTROCARDIOGRAPHIC TECHNICIAN Work Phone: [facility] 02-29-2024 14:50-0400 Body temperature 97.3 [degF] Jeannette Sanon ELECTROCARDIOGRAPHIC TECHNICIAN Work Phone: [facility] 02-29-2024 14:50-0400 Body weight 59.6 kg Jeannette Sanon ELECTROCARDIOGRAPHIC TECHNICIAN Work Phone: [facility] 02-29-2024 14:50-0400 Diastolic blood pressure 62 mm[Hg] Jeannette Sanon ELECTROCARDIOGRAPHIC TECHNICIAN Work Phone: [facility] 02-29-2024 14:50-0400 Heart rate 62 /min Jeannette Sanon ELECTROCARDIOGRAPHIC TECHNICIAN Work Phone: [facility] 02-29-2024 14:50-0400 Respiratory rate 16 /min Jeannette Sanon ELECTROCARDIOGRAPHIC TECHNICIAN Work Phone: [facility] 02-29-2024 14:50-0400 Systolic blood pressure 112 mm[Hg] Jeannette Sanon ELECTROCARDIOGRAPHIC TECHNICIAN Work Phone: [facility] Healthcare Encounters Encounter Date Encounter Type Care Provider Facility Start: 03-16-2024 End: 03-16-2024 Orders Only Jeannette Sanon ELECTROCARDIOGRAPHIC TECHNICIAN Work Phone: [facility] Comment on above: History of biliary c olic (Primary Dx); Hypothyroidism, unspecified (CMS/HCC) Start: 03-15-2024 End: 03-15-2024 Clinisync Result Encounter Jeannette Sanon ELECTROCARDIOGRAPHIC TECHNICIAN Work Phone: [facility] External Department Unsolicited Start: 03-15-2024 End: 03-15-2024 Clinisync Result Encounter Jeannette Sanon ELECTROCARDIOGRAPHIC TECHNICIAN Work Phone: [facility] External Department Unsolicited Start: 02-29-2024 End: 02-29-2024 Periodic preventive med est patient 40-64yrs Jeannette Sanon ELECTROCARDIOGRAPHIC TECHNICIAN Work Phone: [facility] Comment on above: Wellness examination (Primary Dx); Encounter to establish care; History of biliary colic; Encounter for screening mammogram for malignant neoplasm of breast; Need for immunization against influenza Start: 02-29-2024 End: 02-29-2024 Bamboo flowsheet Jeannette Sanon ELECTROCARDIOGRAPHIC TECHNICIAN Work Phone: [facility] Start: 02-29-2024 End: 02-29-2024 Bamboo flowsheet Jeannette Sanon ELECTROCARDIOGRAPHIC TECHNICIAN Work Phone: [facility] Start: 02-29-2024 End: 02-29-2024 Patient encounter status Jeannette Sanon ELECTROCARDIOGRAPHIC TECHNICIAN Work Phone: [facility] Work Phone: Start: 02-21-2024 ambulatory JEANNETTE SANON Fa cility:[facility] Start: 12-29-2021 Encounter for genera l adult medical examination without abnormal findings DR SID LOFTON [facility] Start: 12-25-2021 End: 12-26-[address] SID [...] ALL CBC WITH AUTO DIFF Jeannette Sanon ELECTROCARDIOGRAPHIC TECHNICIAN Work Phone: Start: 03-15-2024 MLR HEMOGLOBIN A1C Lynn Sanon ELECTROCARDIOGRAPHIC TECHNICIAN Work Phone: Start: 10-30-2020 Mammography Jeannette platt NP Work Phone: Plan of Treatment Date Care Activity Detail Author Start: 12-19-2026 Screening for malign ant neoplasm of colon [facility] Start: 02-28-2025 Medicare Annual Well ness (AWV) Medicare Annual Wellness (AWV) [facility] Start: 10-04-2024 Screening for malign ant neoplasm of cervix [facility] Start: 05-31-2024 End: 05-31-2024 Patient encounter procedure 05/31/2024 10:00 AM EST [facility] [address] [place] [address] Jeannette Sanon NP [address] [place] [address] [facility] Start: 04-29-2024 End: 03-16-2025 TSH W/REFLEX TO FT4 TSH W/REFLEX TO FT4 Lab Routine Hypothyroidism, unspecified (CMS/HCC) Expected: 04/29/2024 (Approximate), Expires: 03/16/2025 [facility] Work Phone: Comment on above: Expected: 04/29/2024 (Approximate), Expires: 03/16/2025 Start: 02-29-2024 End: 02-29-2024 Patient encounter procedure 02/29/2024 3:00 PM EDT Office Visit [facility] [address] [place] [address] Jeannette Sanon NP [address] [place] [address] Arrived [facility] Comment on above: Arrived Start: 02-29-2024 End: 02-28-2025 CBC W Auto Differential panel - Blood CBC and differential Lab Routine Wellness examination Expected: 02/29/2024 (Approximate), Expires: 02/28/2025 [facility] Comment on above: Expected: 02/29/2024 (Approximate), Expires: 02/28/2025 Start: 02-29-2024 End: 02-28-2025 Comprehensive metabolic 2000 panel - Serum or Plasma Comprehensive metabolic panel Lab Routine Wellness examination Expected: 02/29/2024 (Approximate), Expires: 02/28/2025 [facility] Comment on above: Expected: 02/29/2024 (Approximate), Expires: 02/28/2025 Start: 02-29-2024 End: 04-30-2025 DBT Breast - bilateral screening Bilateral screening mammogram with tomosynthesis Imaging Routine Encounter for screening mammogram for malignant neoplasm of breast Expected: 02/29/2024, Expires: 04/30/2025 [facility] Comment on above: Expected: 02/29/2024 , Expires: 04/30/2025 Start: 02-29-2024 End: 02-28-2025 Hemoglobin A1c/Hemoglobin.total in Blood Hemoglobin A1c Lab Routine Wellness examination Expected: 02/29/2024 (Approximate), Expires: 02/28/2025 [facility] Comment on above: Expected: 02/29/2024 (Approximate), Expires: 02/28/2025 Start: 02-29-2024 End: 02-28-2025 Lipid 1996 panel - Serum or Plasma Lipid panel Lab Routine Wellness examination Expected: 02/29/2024 (Approximate), Expires: 02/28/2025 [facility] Comment on above: Expected: 02/29/2024 (Approximate), Expires: 02/28/2025 Start: 02-29-2024 End: 02-28-2025 TSH W/REFLEX TO FT4 TSH W/REFLEX TO FT4 Lab Routine Wellness examination Expected: 02/29/2024 (Approximate), Expires: 02/28/2025 [facility] Work Phone: Comment on above: Expected: 02/29/2024 (Approximate), Expires: 02/28/2025 Start: 01-09-2024 Influenza vaccination Influenza Vacc ine (#1) [facility] Start: 2023 Pneumococcal Vaccine : 65+ Years (1 of 1 - PCV) Pneumococcal Vaccine: 65+ Years (1 of 1 - PCV) [facility] Start: 10-23-2022 Screening for malign ant neoplasm of colon [facility] Start: 10-30-2021 Screening for malign ant neoplasm of breast Mammogram [facility] Start: 1979 Screening for malign ant neoplasm of cervix Pap Smear [facility] Start: 1960 Screening for malign ant neoplasm of colon [facility] Immunizations Immunization Date Immunization Notes Care Provider Regis anderson 02-29-2024 influenza, seasonal, injectable, preservative free Jeannette Sanon ELECTROCARDIOGRAPHIC TECHNICIAN Work Phone: [facility] 03-04-2023 influenza virus vaccine, unspecified formulation Jeannette Sanon ELECTROCARDIOGRAPHIC TECHNICIAN Work Phone: [facility] Healthcare Payers Date Payer Category Payer Private Health Insurance [facility] [id number] 2022 Medicare (Managed Care) [employer] [id number] 1959 Medicare [id number] 1961 Self-pay 1959 Unknown [id number] 1958 Unknown [id number] 1958 Unknown [id number] 1958 Unknown [id number] 1958 Unknown [id number] Social History Date Type Detail Facility Tobacco smoking stat [facility] Tobacco smoking consumption unknown [facility] Start: 1960 Sex assigned at Female [facility] Start: 02-28-2024 Gender identity Identifies as female gender (finding) [facility] Start: 02-29-2024 Sexual orientation Not on file [facility] Start: 02-29-2024 Tobacco smoking stat [facility] Never smoked tobacco [facility] Start: [...] was diagnosed with biliary colic. Referred to [facility]- reached out has not heard back [...] day. Consider tracking your food intake on [employer] or [employer]It Water: Increase water intake; GOAL [...] was diagnosed with biliary colic. Referred to [facility]- reached out has not heard back [...] was diagnosed with biliary colic. Referred to [facility]- reached out has not heard back yet. Relevant Medications dicyclomine (Bentyl) 20 MG tablet Encounter for screening mammogram for malignant neoplasm of breast Relevant Orders Bilateral screening mammogram with tomosynthesis Other Visit Diagnoses Need for immunization against influenza Relevant Orders Flu vaccine greater than or equal to 3 years old, preservative free IM (Completed) documented in this encounter [facility] Instructions 02-29-2024 Patient Instructions Note Date & Type Note Facility 02-29-2024 Instructions Jeannette Sanon NP - 02/29/2024 3:00 PM EDT FASTING labs ordered. Nothing to eat or drink for 12 hours prior to blood draw. Water and black coffee ok. Call if you need anything! documented in this encounter [facility] Evaluation note Note Date & Type Note Facility Evaluation note Diagnosis Wellness examination- Primary Encounter to establish care History of biliary colic Encounter for screening mammogram for malignant neoplasm of breast Need for immunization against influenza Need for prophylactic vaccination and inoculation against influenza documented in this encounter [facility] Evaluation note Note Date & [...] and content) DATE CREATED AUTHOR 12/31/2021 [facility] DATE CREATED AUTHOR AUTHOR'S ORGANIZ ATION 02/22/2024 [facility] Care Teams (unrecognized sec tion and content) 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 Start Date End Date Unallocated, Mele Morgan MD [address] [place] [address] PCP - General Family Medicine 02/29/24 Jeannette Sanon NP [address] [place] [place] [address] Nurse Practitioner Family Medicine 02/08/24 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 Specialty Start Date End Date Unallocated, Mele Morgan MD [address] [place] [address] PCP - General Family Medicine 02/29/24 Jeannette Sanon NP [address] [place] [place] [address] Nurse Practitioner Family Medicine 02/08/24 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 [employer] provides no warranty or guarantee of the accuracy or completeness of information in this document.
== END 2024-05-01 08:46 | disposition home or self-care (01) ==
LOC: LAB 08:45
DX: Z00.00 Encounter for general adult medical examination without abnormal findings (principal); E03.9 Hypothyroidism, unspecified
CPT/HCPCS: 36415; 84443